=== PATIENT | female | born 1955 | race Caucasian/White ===

== ENCOUNTER → 2018-11-22 | Outpatient (CLI) | payer MEDICARE ==
--- NOTE | 2018-11-22 16:41 | Diagnostic Imaging Report ---
INDICATION: Chronic renal disease, mineral and bone disorder. TECHNIQUE: Two-view chest at 04:13 p.m. CORRELATION STUDY: None. FINDINGS: Given patient positioning and orientation, heart size, mediastinum, and vasculature are overall within normal limits. Multiple surgical clips in the epigastric region. Lung norris are clear of infiltrate. Mildly prominent interstitial markings. No significant effusion. Mild diffuse bony demineralization is present. IMPRESSION: 1. Negative for acute abnormality of the chest. Dictated by: Dictated on workstation # [id number]
== END ==
LOC: RAD FS 16:00
PROVIDERS: ATTEND Internal Medicine Nephrology
DX: E83.9 Disorder of mineral metabolism, unspecified (principal); N18.9 Chronic kidney disease, unspecified
CPT/HCPCS: 71046

== ENCOUNTER 2019-03-22 16:59 | Emergency (ER) | payer MEDICARE ==
[~2019-03-22] VITALS: Ht 165.1 cm; Wt 55.3 kg
[2019-03-22 17:51] LABS: BASOPHILS % (AUTO) 1 % (0-10); EOSINOPHILS # (AUTO) 0.1 10^3/uL (0.0-0.3); EOSINOPHILS % (AUTO) 2 % (0-10); HEMATOCRIT 34 % (35-52); LYMPHOCYTES # (AUTO) 0.6 X 10^3 (1.0-4.0); LYMPHOCYTES % (AUTO) 15 % (12-44); MEAN CORPUSCULAR HEMOGLOBIN 33 PG (25-34); MEAN CORPUSCULAR HGB CONC 32 G/DL (32-36); MEAN CORPUSCULAR VOLUME 103 FL (80-99); MEAN PLATELET VOLUME 10.2 FL (7.4-10.4); MONOCYTES # (AUTO) 0.4 X 10^3 (0.0-1.0); MONOCYTES % (AUTO) 10 % (0-12); NEUTROPHILS # (AUTO) 2.8 X 10^3 (1.8-7.8); NEUTROPHILS % (AUTO) 71 % (42-75); PLATELET COUNT 122 10^3/uL (130-400)
[2019-03-22 18:04] LABS: CREATININE SERUM 0.96 MG/DL (0.60-1.30); POTASSIUM 4.3 MMOL/L (3.6-5.0)
[2019-03-22 18:05] LABS: ALBUMIN 3.5 GM/DL (3.2-4.5); BILIRUBIN,TOTAL 0.4 MG/DL (0.1-1.0); CALCIUM 7.9 MG/DL (8.5-10.1); TOTAL PROTEIN 6.1 GM/DL (6.4-8.2)
--- NOTE | 2019-03-22 18:22 | ED General ---
General Chief Complaint: General Problems/Pain Stated Complaint: NAUSEA,DIZZY,DROWSY Nursing Triage Note: Patient and zamend-sr-xco report that patient has stage IV renal failure, LORI states that patient has been more fatigued than usual for several weeks, PCP stated patient needed physical therapy. Patient reports a poor appetite and increased fatigue for the last several days, states her potassium may be high. Nursing Sepsis Screen: No Definite Risk Source of Information: Patient Exam Limitations: No Limitations History of Present Illness Date Seen by Provider: Mar 22, 2019 Time Seen by Provider: 18:21 Initial Comments This 64-year-old white female presents when increasing fatigue for the last several weeks. She relates a history of intermittent low-grade fever and nasal congestion, non productive cough, nausea, and diarrhea. There is been no severe abdominal or chest pain, associated frequency or flank pain, paresthesias or weakness in the extremity. Allergies and Home Medications Allergies Coded Allergies: Penicillins (Verified Allergy, Unknown, 03/22/19) sulfamethoxazole (Verified Allergy, Unknown, 03/22/19) trimethoprim (Verified Allergy, Unknown, 03/22/19) zolpidem (Verified Allergy, Unknown, 03/22/19) Patient Home Medication List Home Medication List Reviewed: Yes Review of Systems Review of Systems Constitutional: see HPI, fever, malaise, weakness EENTM: see HPI, nose congestion Respiratory: see HPI, cough Gastrointestinal: No abdominal pain; diarrhea Genitourinary: no symptoms reported; No dysuria, No frequency Musculoskeletal: no symptoms reported Skin: no symptoms reported Psychiatric/Neurological: No Symptoms Reported Hematologic/Lymphatic: No Symptoms Reported Past Hpzhcmy-Jxndzl-Netzvu Hx Past Med/Social Hx: Reviewed Nursing Past Med/Soc Hx Patient Social History Alcohol Use: Denies Use Recreational Drug Use: No Smoking Status: Never a Smoker 2nd Hand Smoke Exposure: No Recent Foreign Travel: No Contact w/Someone Who Travel: No Recent Infectious Disease Expo: No Recent Hopitalizations: No Physical Abuse: No Sexual Abuse: No Mistreated: No Fear: No Seasonal Allergies Seasonal Allergies: No Past Medical History Surgeries: Yes (gastic surgery, neck surgery) Respiratory: No Cardiac: No Neurological: Yes (fibromyalgia) Genitourinary: Yes (Stage IV renal failure) Renal Failure Gastrointestinal: Yes Ulcer Musculoskeletal: No Endocrine: No HEENT: No Cancer: No Psychosocial: No Integumentary: No Physical Exam Vital Signs Vital Signs - First Documented 03/22/19 17:00 Temp 97.0 Pulse 84 Resp 16 B/P (MAP) 122/62 (82) Pulse Ox 94 O2 Delivery Room Air Capillary Refill : Less Than 3 Seconds Height, Weight, BMI Height: 5'5.00" Weight: 122lbs. oz. 55.062907gt; BMI Method:Stated General Appearance: No Apparent Distress, Cachetic Eyes: Bilateral Eye Normal Inspection HEENT: Normal ENT Inspection Neck: Normal Inspection Respiratory: Lungs Clear Cardiovascular: Regular Rate, Rhythm Gastrointestinal: Normal Bowel Sounds Extremity: Normal Capillary Refill, Normal Inspection Neurologic/Psychiatric: No Motor/Sensory Deficits, Normal Mood/Affect Skin: Normal Color, Warm/Dry Progress/Results/Core Measures Suspected Sepsis Recent Fever Within 48 Hours: No Infection Criteria Present: None New/Unexplained Altered Menta: No Sepsis Screen: No Definite Risk SIRS Temperature:97.0 Pulse: 84 Respiratory Rate: 16 Laboratory Tests 03/22/19 17:30: White Blood Count 4.0L Blood Pressure 122 /62 Mean: 82 Laboratory Tests 03/22/19 17:30: Creatinine 0.96, Platelet Count 122L, Total Bilirubin 0.4 Results/Orders Lab Results Laboratory Tests Test 03/22/19 17:30 Range/Units White Blood Count 4.0 L 4.3-11.0 10^3/uL Red Blood Count 3.34 L 4.35-5.85 10^6/uL Hemoglobin 11.0 L 11.5-16.0 G/DL Hematocrit 34 L 35-52 % Mean Corpuscular Volume 103 H 80-99 FL Mean Corpuscular Hemoglobin 33 25-34 PG Mean Corpuscular Hemoglobin Concent 32 32-36 G/DL Red Cell Distribution Width 13.0 10.0-14.5 % Platelet Count 122 L 130-400 10^3/uL Mean Platelet Volume 10.2 7.4-10.4 FL Neutrophils (%) (Auto) 71 42-75 % Lymphocytes (%) (Auto) 15 12-44 % Monocytes (%) (Auto) 10 0-12 % Eosinophils (%) (Auto) 2 0-10 % Basophils (%) (Auto) 1 0-10 % Neutrophils # (Auto) 2.8 1.8-7.8 X 10^3 Lymphocytes # (Auto) 0.6 L 1.0-4.0 X 10^3 Monocytes # (Auto) 0.4 0.0-1.0 X 10^3 Eosinophils # (Auto) 0.1 0.0-0.3 10^3/uL Basophils # (Auto) 0.0 0.0-0.1 10^3/uL Sodium Level 139 135-145 MMOL/L Potassium Level 4.3 3.6-5.0 MMOL/L Chloride Level 100 98-107 MMOL/L Carbon Dioxide Level 24 21-32 MMOL/L Anion Gap 15 H 5-14 MMOL/L Blood Urea Nitrogen 13 7-18 MG/DL Creatinine 0.96 0.60-1.30 MG/DL Estimat Glomerular Filtration Rate 59 BUN/Creatinine Ratio 14 Glucose Level 99 70-105 MG/DL Calcium Level 7.9 L 8.5-10.1 MG/DL Corrected Calcium 8.3 L 8.5-10.1 MG/DL Total Bilirubin 0.4 0.1-1.0 MG/DL Aspartate Amino Transf (AST/SGOT) 57 H 5-34 U/L Alanine Aminotransferase (ALT/SGPT) 28 0-55 U/L Alkaline Phosphatase 107 40-136 U/L Total Protein 6.1 L 6.4-8.2 GM/DL Albumin 3.5 3.2-4.5 GM/DL My Orders Orders - PARISA SINGH MD Ns Iv 1000 Ml (Sodium Chloride 0.9%) (03/22/19 18:30) Ns Iv 1000 Ml (Sodium Chloride 0.9%) (03/22/19 18:27) Vital Signs/I&O 03/22/19 17:00 Temp 97.0 Pulse 84 Resp 16 B/P (MAP) 122/62 (82) Pulse Ox 94 O2 Delivery Room Air Capillary Refill : Less Than 3 Seconds Blood Pressure Mean: 82 Progress Note : Time: 19:36 Progress Note Patient laboratory evaluation was essentially unremarkable. The patient was symptomatically improved with a liter of fluids. I discussed the findings with the patient and family. I encouraged him to follow up with their caregiver on Monday. I invited them to return to the emergency department over the weekend if any further problems or questions. Departure Impression Primary Impression: Viral gastroenteritis Additional Impression: Viral syndrome Disposition: 01 HOME, SELF-CARE Condition: Improved Departure-Patient Inst. Decision time for Depature: 19:37 Referrals: SHEILA SUTTON (PCP) Primary Care Physician Patient Instructions: Viral Gastroenteritis, Adult (DC) Add. Discharge Instructions: Clear liquids for the next 24 hours. Zofran for nausea. Close follow here doctor on Monday. Return if any problems or questions. All discharge instructions reviewed with patient and/or family. Voiced understanding. Scripts Ondansetron (Ondansetron Odt) 4 Mg Tab.rapdis 4 MG PO Q4H PRN for NAUSEA/VOMITING, #10 TAB Prov: PARISA SINGH MD 03/22/19 PARISA SINGH MD Mar 22, 2019 18:22
[2019-03-22] MEDS ORDERED: NS IV 1000 ML 1,000 ML ONE (18:27)
[2019-03-22] MEDS ORDERED: NS IV 1000 ML 1,000 ML IV SCH (18:30)
[2019-03-22] MEDS ORDERED: ONDA4TAB11 PO (19:39)
[2019-03-22 19:53] VITALS: BP 119/63
--- OUTSIDE RECORDS SUMMARY | 2019-03-22 21:47 | XMS REPORT | Continuity of Care Document ---
Author Organization Unknown Address Unknown Allergies There is no data. Medications There is no data. Problems There is no data. Procedures There is no data. Results Test Result Range [facility] - 01/01/19 10:00 GLUCOSE 84 mg/dL 65-139 UREA NITROGEN (BUN) 18 mg/dL 7-25 CREATININE 1.06 mg/dL 0.50-0.99 eGFR NON-AFR. CONGOLESE 56 mL/min/1.73m2 > OR=60 eGFR 65 mL/min/1.73m2 > OR=60 BUN/CREATININE RATIO 17 (calc) 6-22 SODIUM 140 mmol/L 135-146 POTASSIUM 5.5 mmol/L 3.5-5.3 CHLORIDE 105 mmol/L 98-110 CARBON DIOXIDE 29 mmol/L 20-32 CALCIUM 9.0 mg/dL 8.6-10.4 PROTEIN, TOTAL 6.3 g/dL 6.1-8.1 ALBUMIN 3.9 g/dL 3.6-5.1 GLOBULIN 2.4 g/dL (calc) 1.9-3.7 ALBUMIN/GLOBULIN RATIO 1.6 (calc) 1.0-2.5 BILIRUBIN, TOTAL 0.3 mg/dL 0.2-1.2 ALKALINE PHOSPHATASE 81 U/L 33-130 AST 15 U/L 10-35 ALT 8 U/L 6-29 [facility] - 01/31/19 16:33 GLUCOSE 81 mg/dL 65-99 UREA NITROGEN (BUN) 19 mg/dL 7-25 CREATININE 1.10 mg/dL 0.50-0.99 eGFR NON-AFR. CONGOLESE 53 mL/min/1.73m2 > OR=60 eGFR 61 mL/min/1.73m2 > OR=60 BUN/CREATININE RATIO 17 (calc) 6-22 SODIUM 138 mmol/L 135-146 POTASSIUM 4.6 mmol/L 3.5-5.3 CHLORIDE 102 mmol/L 98-110 CARBON DIOXIDE 28 mmol/L 20-32 CALCIUM 9.1 mg/dL 8.6-10.4 Encounters ACCT No. Visit Date/Time Discharge Status Pt. Type Provider Facility Loc./Unit Complaint [id number] 02/07/2019 09:00:00 02/07/2019 23:59:59 [facility] Robby LAZO PHD, BONNY Pedraza [facility] [id number] 01/31/2019 15:30:00 Document Registration [id number] 01/01/2019 09:00:00 Document Registration
== END 2019-03-22 19:58 | disposition home or self-care (01) ==
LOC: EDUNIT# 16:59 → ER FS 17:01
DX: A08.4 Viral intestinal infection, unspecified (principal); B34.9 Viral infection, unspecified; M79.7 Fibromyalgia; N18.4 Chronic kidney disease, stage 4 (severe); Z88.0 Allergy status to penicillin; Z88.2 Allergy status to sulfonamides; Z88.1 Allergy status to other antibiotic agents; Z88.8 Allergy status to other drugs, medicaments and biological substances
CPT/HCPCS: 36415; 80053; 85025; 96360

== ENCOUNTER → 2019-06-21 | Outpatient (CLI) | payer MEDICARE ==
[~2019-06-21] MED LIST: ONDA4TAB11 PO
[2019-06-21 09:00] LABS: CARBON DIOXIDE 30 MMOL/L (21-32); CHLORIDE 101 MMOL/L (98-107); POTASSIUM 3.3 MMOL/L (3.6-5.0); SODIUM 141 MMOL/L (135-145)
[2019-06-21 09:01] LABS: ALANINE AMINOTRANSFERASE 11 U/L (0-55); ALKALINE PHOSPHATASE 79 U/L (40-136); BILIRUBIN,TOTAL 0.4 MG/DL (0.1-1.0); BUN/CREATININE RATIO 19; CALCIUM 8.8 MG/DL (8.5-10.1); CREATININE SERUM 0.84 MG/DL (0.60-1.30); GFR ESTIMATED > 60; GLUCOSE 87 MG/DL (70-105); MAGNESIUM 1.4 MG/DL (1.6-2.4); TOTAL PROTEIN 6.7 GM/DL (6.4-8.2)
== END ==
LOC: LAB FS 08:15
PROVIDERS: ATTEND Nurse Practitioner
DX: E87.5 Hyperkalemia (principal); I10 Essential (primary) hypertension
CPT/HCPCS: 36415; 80053; 83735

== ENCOUNTER → 2019-11-01 | Outpatient (CLI) | payer MEDICARE ==
[2019-11-01 14:24] LABS: PHOSPHORUS 3.6 MG/DL (2.3-4.7)
[2019-11-01 14:40] LABS: BUN/CREATININE RATIO 16; CARBON DIOXIDE 23 MMOL/L (21-32); CHLORIDE 106 MMOL/L (98-107); CREATININE SERUM 0.87 MG/DL (0.60-1.30); GFR ESTIMATED > 60; GLUCOSE 91 MG/DL (70-105); POTASSIUM 4.9 MMOL/L (3.6-5.0); SODIUM 140 MMOL/L (135-145)
== END ==
LOC: LAB FS 12:17
PROVIDERS: ATTEND Internal Medicine Nephrology
DX: E87.6 Hypokalemia (principal); E83.9 Disorder of mineral metabolism, unspecified; N18.9 Chronic kidney disease, unspecified
CPT/HCPCS: 36415; 80069

== ENCOUNTER → 2020-06-05 | Outpatient (CLI) | payer MEDICARE | LOC: LAB FS 09:00 | PROVIDERS: ATTEND Psychiatry & Neurology Neurology | DX: Z01.812 Encounter for preprocedural laboratory examination (principal); Z20.828 Contact with and (suspected) exposure to other viral communicable diseases ==

== ENCOUNTER → 2020-06-05 | Outpatient (CLI) | payer MEDICARE | LOC: LABNPT 05:39 | PROVIDERS: ATTEND Psychiatry & Neurology Neurology | DX: Z01.812 Encounter for preprocedural laboratory examination (principal); Z20.828 Contact with and (suspected) exposure to other viral communicable diseases | CPT/HCPCS: 87635 ==

== ENCOUNTER 2020-06-15 20:53 | Outpatient (CLI) | payer MEDICARE | END 2020-06-16 06:40 | disposition home or self-care (01) | LOC: SLEEP 20:53 | PROVIDERS: ATTEND Psychiatry & Neurology Neurology | DX: G47.33 Obstructive sleep apnea (adult) (pediatric) (principal); G47.419 Narcolepsy without cataplexy; G47.00 Insomnia, unspecified; G47.10 Hypersomnia, unspecified; H02.403 Unspecified ptosis of bilateral eyelids; Z20.828 Contact with and (suspected) exposure to other viral communicable diseases | CPT/HCPCS: 95810 ==

== ENCOUNTER 2020-09-04 19:25 | Emergency (ER) | payer MEDICARE ==
[~2020-09-04] VITALS: Ht 167.2 cm; Wt 58.0 kg
--- NOTE | 2020-09-04 19:43 | ED Lower Extremity ---
General Chief Complaint: Trauma-Non Activation Stated Complaint: FALL History of Present Illness Date Seen by Provider: Sep 04, 2020 Time Seen by Provider: 19:43 Initial Comments 65-year-old female presents with left hip pain. Patient reports she was walking her dog got tangled in a dog's leash and she fell on her left hip. She also has a small contusion on her left forearm. Patient reports that she's had a previous hip surgery. Reports it happened about 8 hours ago. That she is able to move it. It hurts to bear weight on it. She comes in tonight because it continues to hurt. She suffered no other injuries during the fall. Allergies and Home Medications Allergies Coded Allergies: Penicillins (Verified Allergy, Unknown, 03/22/19) sulfamethoxazole (Verified Allergy, Unknown, 03/22/19) trimethoprim (Verified Allergy, Unknown, 03/22/19) zolpidem (Verified Allergy, Unknown, 03/22/19) Home Medications Ondansetron 4 Mg Tab.rapdis, 4 MG PO Q4H PRN for NAUSEA/VOMITING Prescribed by: PARISA SINGH MD on 03/22/191938 Patient Home Medication List Home Medication List Reviewed: Yes Review of Systems Constitutional: No chills, No fever EENTM: see HPI Respiratory: No cough, No short of breath Cardiovascular: No chest pain, No palpitations Gastrointestinal: No abdominal pain, No nausea, No vomiting Genitourinary: no symptoms reported Musculoskeletal: see HPI Skin: see HPI Psychiatric/Neurological: No Symptoms Reported Past Cwrfgrz-Lrtnhv-Cvamwx Hx Past Med/Social Hx: Reviewed Nursing Past Med/Soc Hx Patient Social History 2nd Hand Smoke Exposure: No Recent Foreign Travel: No Contact w/Someone Who Travel: No Recent Hopitalizations: No Seasonal Allergies Seasonal Allergies: No Past Medical History Surgeries: Yes (gastic surgery, neck surgery) Respiratory: No Cardiac: No Neurological: Yes (fibromyalgia) Genitourinary: Yes (Stage IV renal failure) Renal Failure Gastrointestinal: Yes Ulcer Musculoskeletal: No Endocrine: No HEENT: No Cancer: No Psychosocial: No Integumentary: No Physical Exam Vital Signs Vital Signs - First Documented 09/04/20 19:26 Temp 36.9 Pulse 94 Resp 14 B/P (MAP) 157/73 (101) Pulse Ox 97 O2 Delivery Room Air Capillary Refill : Height, Weight, BMI Height: 5'5.00" Weight: 122lbs. oz. 55.364910ks; BMI Method:Stated General Appearance: mild distress Neck: full range of motion, supple Cardiovascular: normal peripheral pulses, regular rate, rhythm Respiratory: lungs clear, normal breath sounds Gastrointestinal: non tender, soft Hips: right hip non-tender, right hip normal inspection, right hip normal range of motion; left hip limited range of motion, left hip soft tissue tenderness Legs: bilateral leg non-tender, bilateral leg normal inspection Knees: bilateral knee non-tender, bilateral knee normal inspection Ankles: bilateral ankle non-tender, bilateral ankle normal inspection Neurologic/Tendon: normal sensation Neurologic/Psychiatric: alert, normal mood/affect, oriented x 3 Skin: ecchymosis (left forearm) Progress/Results/Core Measures Results/Orders My Orders Orders - WARNER MARCOS DO Pelvis With Left Hip 2-3 View (09/04/20 19:45) Vital Signs/I&O 09/04/20 09/04/20 19:26 19:50 Temp 36.9 36.9 Pulse 94 94 Resp 14 14 B/P (MAP) 157/73 (101) 157/73 (101) Pulse Ox 97 97 O2 Delivery Room Air Room Air Progress Progress Note : Time: 20:15 Progress Note Patient with negative x-ray of her left hip. She has a hematoma of the left forearm. X-ray was offered the forearm and she declined. Patient was instructed use some Tylenol as needed for pain, topical lidocaine, ice. She should follow- up with her primary care provider as needed Diagnostic Imaging Diagonstic Imaging: Xray Plain Films/CT/US/NM/MRI: hip Comments No acute fracture noted [facility] [place] NAME: RYAN SOMMERS [facility] REC#: [id number] PT STATUS: REG ER : 1955 PHYSICIAN: WARNER MARCOS DO ADMIT DATE: 09/04/20/ER FS Draft Date of Exam:09/04/20 PELVIS WITH LEFT HIP 2-3 VIEW EXAMINATION: Left hip unilateral 2 or 3 views (w/pelvis when done). HISTORY: Fall. COMPARISON: None available. FINDINGS: Heterotopic ossification is seen in the left thigh possibly representing myositis ossifications. No fracture is seen in either hip. There is a deformity of the left hip likely representing an old healed fracture. There is osteitis pubis versus an old pubic fracture. Joint spaces are normal. IMPRESSION: No acute fracture is seen. Dictated on workstation # [id number] Dict: 09/04/202003 Trans: 09/04/202008 [id number] Interpreted by: AMIRAH LAZO MD Electronically signed by: Reviewed: Reviewed by Me, Reviewed/Discussed Departure Impression Primary Impression: Contusion, hip and thigh Qualified Codes: S70.02XA - Contusion of left hip, initial encounter; S70.12XA - Contusion of left thigh, initial encounter Additional Impression: Traumatic hematoma of left forearm Qualified Codes: S50.12XA - Contusion of left forearm, initial encounter Disposition: 01 HOME, SELF-CARE Condition: Stable Departure-Patient Inst. Referrals: CASPER HERNANDEZ MD (PCP/Family) Primary Care Physician Patient Instructions: Hip Pointer (DC), Contusion (DC) Add. Discharge Instructions: 4% topical lidocaine with menthol to affected area as directed on package Ice to affected area Follow-up with your primary care provider if symptoms are not improving or worsen over the next week. All discharge instructions reviewed with patient and/or family. Voiced understanding. WARNER MARCOS DO Sep 04, 2020 19:43
--- NOTE | 2020-09-04 20:09 | Diagnostic Imaging Report ---
EXAMINATION: Left hip unilateral 2 or 3 views (w/pelvis when done). HISTORY: Fall. COMPARISON: None available. FINDINGS: Heterotopic ossification is seen in the left thigh possibly representing myositis ossifications. No fracture is seen in either hip. There is a deformity of the left hip likely representing an old healed fracture. There is osteitis pubis versus an old pubic fracture. Joint spaces are normal. IMPRESSION: No acute fracture is seen. Dictated by: Dictated on workstation # [id number]
[2020-09-04 20:18] VITALS: BP 140/62
== END 2020-09-04 20:38 | disposition home or self-care (01) ==
LOC: EDUNIT# 19:25 → ER FS 19:31
DX: S70.02XA Contusion of left hip, initial encounter (principal); S70.12XA Contusion of left thigh, initial encounter; S50.12XA Contusion of left forearm, initial encounter; Z88.0 Allergy status to penicillin; Z88.2 Allergy status to sulfonamides; Z88.1 Allergy status to other antibiotic agents; Z88.8 Allergy status to other drugs, medicaments and biological substances; W54.1XXA Struck by dog, initial encounter
CPT/HCPCS: 73502

== ENCOUNTER 2020-09-11 21:17 | Emergency (ER) | payer MEDICARE ==
--- NOTE | 2020-09-11 21:30 | ED Lower Extremity ---
General Stated Complaint: FELL TWICE,LT LEG AND HIP PAIN History of Present Illness Date Seen by Provider: Sep 11, 2020 Time Seen by Provider: 21:27 Initial Comments 65-year-old female presents with left hip pain. Patient was seen here on 1225 following a fall when she got tangled in her dog leash with a negative x-ray. Since then she has had another fall along with tonight she twisted funny and now has worsening pain in her left hip. She also reports she is "been having a hard time keeping her eyes open". She reports she's been seen following with her family doctor on for both the hip pain and that difficulty with what she says is keeping her eyes open. Patient is here today because of the worsening pain in her left hip. Patient is mildly lethargic but then admits to taking morphine prior to coming to the ER Allergies and Home Medications Allergies Coded Allergies: Penicillins (Verified Allergy, Unknown, 03/22/19) sulfamethoxazole (Verified Allergy, Unknown, 03/22/19) trimethoprim (Verified Allergy, Unknown, 03/22/19) zolpidem (Verified Allergy, Unknown, 03/22/19) Home Medications Ondansetron 4 Mg Tab.rapdis, 4 MG PO Q4H PRN for NAUSEA/VOMITING Prescribed by: PARISA SINGH MD on 03/22/191938 Patient Home Medication List Home Medication List Reviewed: Yes Review of Systems Constitutional: No chills, No fever EENTM: see HPI Respiratory: No cough, No short of breath Cardiovascular: No chest pain, No palpitations Gastrointestinal: no symptoms reported Genitourinary: no symptoms reported Musculoskeletal: see HPI Skin: no symptoms reported Psychiatric/Neurological: No Symptoms Reported Past Fmnoine-Huazwt-Lbztrs Hx Past Med/Social Hx: Reviewed Nursing Past Med/Soc Hx Patient Social History 2nd Hand Smoke Exposure: No Recent Foreign Travel: No Contact w/Someone Who Travel: No Recent Hopitalizations: No Seasonal Allergies Seasonal Allergies: No Past Medical History Surgeries: Yes (gastic surgery, neck surgery) Respiratory: No Cardiac: No Hypertension Neurological: Yes (fibromyalgia) Genitourinary: Yes (Stage IV renal failure) Renal Failure Gastrointestinal: Yes Ulcer Musculoskeletal: No Endocrine: No HEENT: No Cancer: No Psychosocial: Yes Depression Integumentary: No Blood Disorders: No Physical Exam Vital Signs Vital Signs - First Documented 09/11/20 21:21 Pulse 110 Resp 16 B/P (MAP) 113/63 (80) Pulse Ox 100 O2 Delivery Room Air Capillary Refill : Height, Weight, BMI Height: 5'5.00" Weight: 122lbs. oz. 55.174400zy; 20.00 BMI Method:Stated General Appearance: mild distress HEENT: other (patient has her eyes closed and then when she wants to she'll gently reaches up and hold them up with her fingers, she reports that this is not new has been evaluated outpatient for this) Neck: full range of motion, supple Cardiovascular: normal peripheral pulses, regular rate, rhythm Respiratory: lungs clear, normal breath sounds Hips: left hip soft tissue tenderness Legs: bilateral leg no evidence of injury Knees: bilateral knee normal inspection, bilateral knee normal range of motion Ankles: bilateral ankle non-tender Neurologic/Psychiatric: alert, other (mild fatigue/lethargic consistent with morphine use) Progress/Results/Core Measures Results/Orders Lab Results Laboratory Tests Test 09/11/20 21:31 Range/Units White Blood Count 5.8 4.3-11.0 10^3/uL Red Blood Count 3.36 L 4.35-5.85 10^6/uL Hemoglobin 11.6 11.5-16.0 G/DL Hematocrit 36 35-52 % Mean Corpuscular Volume 107 H 80-99 FL Mean Corpuscular Hemoglobin 35 H 25-34 PG Mean Corpuscular Hemoglobin Concent 32 32-36 G/DL Red Cell Distribution Width 12.8 10.0-14.5 % Platelet Count 233 130-400 10^3/uL Mean Platelet Volume 10.1 7.4-10.4 FL Immature Granulocyte % (Auto) 1 % Neutrophils (%) (Auto) 78 H 42-75 % Lymphocytes (%) (Auto) 12 12-44 % Monocytes (%) (Auto) 9 0-12 % Eosinophils (%) (Auto) 1 0-10 % Basophils (%) (Auto) 0 0-10 % Neutrophils # (Auto) 4.5 1.8-7.8 X 10^3 Lymphocytes # (Auto) 0.7 L 1.0-4.0 X 10^3 Monocytes # (Auto) 0.5 0.0-1.0 X 10^3 Eosinophils # (Auto) 0.0 0.0-0.3 10^3/uL Basophils # (Auto) 0.0 0.0-0.1 10^3/uL Immature Granulocyte # (Auto) 0.0 0.0-0.1 10^3/uL Sodium Level 134 L 135-145 MMOL/L Potassium Level 4.2 3.6-5.0 MMOL/L Chloride Level 99 98-107 MMOL/L Carbon Dioxide Level 21 21-32 MMOL/L Anion Gap 14 5-14 MMOL/L Blood Urea Nitrogen 15 7-18 MG/DL Creatinine 0.88 0.60-1.30 MG/DL Estimat Glomerular Filtration Rate > 60 BUN/Creatinine Ratio 17 Glucose Level 104 70-105 MG/DL Calcium Level 9.4 8.5-10.1 MG/DL Corrected Calcium 9.6 8.5-10.1 MG/DL Total Bilirubin 0.4 0.1-1.0 MG/DL Aspartate Amino Transf (AST/SGOT) 19 5-34 U/L Alanine Aminotransferase (ALT/SGPT) 12 0-55 U/L Alkaline Phosphatase 104 40-136 U/L C-Reactive Protein 4.58 H <0.50 MG/DL Total Protein 6.9 6.4-8.2 GM/DL Albumin 3.7 3.2-4.5 GM/DL My Orders Orders - MARCOS,WARNER L DO Cbc With Automated Diff (09/11/20 21:30) Comprehensive Metabolic Panel (09/11/20 21:30) Drug Screen Stat (Urine) (09/11/20 21:30) Ua Culture If Indicated (09/11/20 21:30) Crp Fs (09/11/20 21:30) Pelvis With Left Hip 2-3 View (09/11/20 21:30) Ct Extremity Lower Left Wo (09/11/20 22:23) Vital Signs/I&O 09/11/20 21:21 Pulse 110 Resp 16 B/P (MAP) 113/63 (80) Pulse Ox 100 O2 Delivery Room Air Progress Progress Note : Progress Note Patient with intertrochanteric left hip fracture on CT. Patient to be transferred ER to ER to [place]. [facility] does not have any orthopedic coverage today. Patient is stable at transfer. Diagnostic Imaging Diagonstic Imaging: CT Plain Films/CT/US/NM/MRI: hip Comments intertrochanteric left hip fracture Reviewed: Reviewed Farheen King Study Departure Impression Primary Impression: Intertrochanteric fracture of left hip Qualified Codes: S72.145A - Nondisplaced intertrochanteric fracture of left femur, initial encounter for closed fracture Disposition: XFER SHT-TRM HOSP Condition: Stable Transfer Transfer Reason: Exceeds level of care Time Spoke to Accepting Phy: 23:40 Transfer Progress Notes Patient accepted for transfer urinary ER by Dr. Chandra Transfer Facility: [facility] Method of Transfer: EMS Departure-Patient Inst. Referrals: CASPER HERNANDEZ MD (PCP/Family) Primary Care Physician WARNER MARCOS DO Sep 11, 2020 21:30
[2020-09-11 21:43] LABS: HEMATOCRIT 36 % (35-52); HEMOGLOBIN 11.6 G/DL (11.5-16.0); MEAN CORPUSCULAR HEMOGLOBIN 35 PG (25-34); WHITE BLOOD COUNT 5.8 10^3/uL (4.3-11.0)
[2020-09-11 21:44] LABS: BASOPHILS % (AUTO) 0 % (0-10); EOSINOPHILS % (AUTO) 1 % (0-10); LYMPHOCYTES # (AUTO) 0.7 X 10^3 (1.0-4.0); LYMPHOCYTES % (AUTO) 12 % (12-44); MEAN CORPUSCULAR HGB CONC 32 G/DL (32-36); MEAN CORPUSCULAR VOLUME 107 FL (80-99); MEAN PLATELET VOLUME 10.1 FL (7.4-10.4); MONOCYTES # (AUTO) 0.5 X 10^3 (0.0-1.0); MONOCYTES % (AUTO) 9 % (0-12); NEUTROPHILS # (AUTO) 4.5 X 10^3 (1.8-7.8); NEUTROPHILS % (AUTO) 78 % (42-75); PLATELET COUNT 233 10^3/uL (130-400)
[2020-09-11 22:12] LABS: CHLORIDE 99 MMOL/L (98-107); POTASSIUM 4.2 MMOL/L (3.6-5.0); SODIUM 134 MMOL/L (135-145)
[2020-09-11 22:13] LABS: ALANINE AMINOTRANSFERASE 12 U/L (0-55); ALBUMIN 3.7 GM/DL (3.2-4.5); ALKALINE PHOSPHATASE 104 U/L (40-136); BILIRUBIN,TOTAL 0.4 MG/DL (0.1-1.0); BUN/CREATININE RATIO 17; CALCIUM 9.4 MG/DL (8.5-10.1); CARBON DIOXIDE 21 MMOL/L (21-32); CREATININE SERUM 0.88 MG/DL (0.60-1.30); GFR ESTIMATED > 60; GLUCOSE 104 MG/DL (70-105); TOTAL PROTEIN 6.9 GM/DL (6.4-8.2)
[2020-09-11 23:55] LABS: BACTERIA,URINE NEGATIVE /HPF; BILIRUBIN,URINE NEGATIVE (NEGATIVE); CLARITY,URINE CLEAR; COLOR,URINE YELLOW; GLUCOSE, URINE (UA) NEGATIVE (NEGATIVE); KETONES,URINE NEGATIVE (NEGATIVE); LEUKOCYTE ESTERASE ,URINE NEGATIVE (NEGATIVE); NITRITE,URINE NEGATIVE (NEGATIVE); PROTEIN,URINE NEGATIVE (NEGATIVE); RBC,URINE RARE /HPF
[2020-09-12 00:03] LABS: AMPHETAMINE SCREEN, URINE NEGATIVE (NEGATIVE); BENZODIAZEPINES SCREEN URINE NEGATIVE (NEGATIVE); CANNABINOID SCREEN, URINE NEGATIVE (NEGATIVE); COCAINE SCREEN URINE NEGATIVE (NEGATIVE); METHAMPHETAMINE SCREEN URINE S NEGATIVE (NEGATIVE); OPIATE SCREEN URINE POSITIVE (NEGATIVE)
[2020-09-12 00:04] LABS: BARBITURATE SCREEN URINE NEGATIVE (NEGATIVE); METHADONE STAT NEGATIVE (NEGATIVE); OXYCODONE STAT NEGATIVE (NEGATIVE); PROPOXYPHENE STAT NEGATIVE (NEGATIVE); TRICYCLIC ANTIDEPRESSANTS SCRE NEGATIVE (NEGATIVE)
[2020-09-12 01:07] VITALS: BP 126/65
[2020-09-12] MEDS ORDERED: HYDROcodone/APAP 5 MG/325 MG (LORTAB) TAB PO ONE (01:30)
--- NOTE | 2020-09-12 06:08 | Diagnostic Imaging Report ---
INDICATION: History of multiple falls. Left hip pain. TECHNIQUE: AP pelvis along with 2 views left hip, 9:48 PM CORRELATION STUDY: 09/04/2020 FINDINGS: The pelvis demonstrates what appears to be prior fracture deformity at the level of the pubic symphysis. Osteitis pubis is present. SI joints are grossly maintained but largely obscured by overlying bowel gas and stool. Right hip joint demonstrates no acute abnormality. There is an impacted intertrochanteric proximal left femur fracture. Heterotopic ossification seen in the left thigh. Can be seen with perhaps prior myositis ossificans. IMPRESSION: Positive for an impacted left intertrochanteric femur fracture. Remainder of the pelvis otherwise demonstrates chronic changes with likely prior fracture deformities of the pubic rami. Dictated by: Dictated on workstation # [id number]
--- NOTE | 2020-09-12 06:14 | Diagnostic Imaging Report ---
PROCEDURE: CT left lower extremity without contrast. TECHNIQUE: Multiple contiguous axial images were obtained through the left lower extremity without the use of intravenous contrast. Sagittal and coronal reformations were then performed. Auto Exposure Controls were utilized during the CT exam to meet ALARA standards for radiation dose reduction. INDICATION: Multiple falls and left hip pain. There is an acute intertrochanteric type left hip fracture. The femoral acetabular alignment is maintained. The superior and inferior pubic rami are intact. Acetabulum is intact. IMPRESSION: Intertrochanteric left hip fracture. Dictated by: Dictated on workstation # [id number]
== END 2020-09-12 02:10 | disposition short-term general hospital (02) ==
LOC: EDUNIT# 21:17 → ER FS 21:19
DX: S72.142A Displaced intertrochanteric fracture of left femur, initial encounter for closed fracture (principal); Z88.1 Allergy status to other antibiotic agents; Z88.0 Allergy status to penicillin; Z88.2 Allergy status to sulfonamides; Z88.8 Allergy status to other drugs, medicaments and biological substances; X50.1XXA Overexertion from prolonged static or awkward postures, initial encounter
CPT/HCPCS: 36415; 51702; 73502; 73700; 80053; 80306; 81000; 85025; 86141

== ENCOUNTER 2020-11-22 01:43 | Emergency (ER) | payer MEDICARE, MEDICAID ==
[~2020-11-22] VITALS: Ht 152 cm; Wt 47.1 kg
[2020-11-22 01:51] VITALS: BP 137/65
--- NOTE | 2020-11-22 01:57 | ED GI ---
General Stated Complaint: DIARRHEA Source of Information: Patient Exam Limitations: No Limitations History of Present Illness Date Seen by Provider: Nov 22, 2020 Time Seen by Provider: 01:57 Initial Comments 65-year-old female presents with complaints of chronic diarrhea. Patient is to obtain a history as she frequently can changes focus and her story. Patient told the nurse that she has had diarrhea on and off for 30 years for last 2 to 3 weeks its been more of an issue. Patient told me she has been having diarrhea for at least 3 to 4 weeks with this new issue. Patient states that there is a little bit of "flecks of blood" in her diarrhea. Patient's primary care provider is supposedly aware of her diarrheal issue. Patient saw him approximately 7 days ago. She states that he treated her with an antibiotic for cellulitis of the left leg. She does not report any nausea, vomiting. Allergies and Home Medications Allergies Coded Allergies: Penicillins (Verified Allergy, Unknown, 03/22/19) sulfamethoxazole (Verified Allergy, Unknown, 03/22/19) trimethoprim (Verified Allergy, Unknown, 03/22/19) zolpidem (Verified Allergy, Unknown, 03/22/19) Home Medications Ondansetron 4 Mg Tab.rapdis, 4 MG PO Q4H PRN for NAUSEA/VOMITING Prescribed by: PARISA SINGH MD on 03/22/191938 Patient Home Medication List Home Medication List Reviewed: Yes Review of Systems Review of Systems Constitutional: see HPI EENTM: See HPI Respiratory: No Symptoms Reported, Orthopnea Gastrointestinal: See HPI; Denies Abdominal Pain; Diarrhea; Denies Nausea, Denies Vomiting Genitourinary: No Symptoms Reported Musculoskeletal: no symptoms reported Skin: no symptoms reported Psychiatric/Neurological: No Symptoms Reported Past Crjalxz-Swwgbu-Ysmfyn Hx Past Med/Social Hx: Reviewed Nursing Past Med/Soc Hx Patient Social History 2nd Hand Smoke Exposure: No Recent Hopitalizations: No Seasonal Allergies Seasonal Allergies: No Past Medical History Surgeries: Yes (gastic surgery, neck surgery) Respiratory: No Cardiac: No Hypertension Neurological: Yes (fibromyalgia) Genitourinary: Yes (Stage IV renal failure) Renal Failure Gastrointestinal: Yes Ulcer Musculoskeletal: No Endocrine: No HEENT: No Cancer: No Psychosocial: Yes Depression Integumentary: No Blood Disorders: No Physical Exam Vital Signs Vital Signs - First Documented 11/22/20 01:51 Temp 36.6 Pulse 101 Resp 18 B/P (MAP) 137/65 (89) Pulse Ox 100 O2 Delivery Room Air Capillary Refill : Height/Weight/BMI Height: 5'5.00" Weight: 122lbs. oz. 55.108969hm; 20.00 BMI Method:Stated General Appearance: no apparent distress, cachetic Respiratory: lungs clear, normal breath sounds Cardiovascular: normal peripheral pulses, regular rate, rhythm Gastrointestinal: non tender, soft Neurologic/Psychiatric: no motor/sensory deficits Skin: normal color, warm/dry Progress/Results/Core Measures Results/Orders Lab Results Laboratory Tests Test 11/22/20 03:08 Range/Units White Blood Count 4.6 4.3-11.0 10^3/uL Red Blood Count 3.50 L 4.35-5.85 10^6/uL Hemoglobin 9.7 L 11.5-16.0 G/DL Hematocrit 33 L 35-52 % Mean Corpuscular Volume 93 80-99 FL Mean Corpuscular Hemoglobin 28 25-34 PG Mean Corpuscular Hemoglobin Concent 30 L 32-36 G/DL Red Cell Distribution Width 16.5 H 10.0-14.5 % Platelet Count 208 130-400 10^3/uL Mean Platelet Volume 10.1 7.4-10.4 FL Immature Granulocyte % (Auto) 0 % Neutrophils (%) (Auto) 64 42-75 % Lymphocytes (%) (Auto) 25 12-44 % Monocytes (%) (Auto) 8 0-12 % Eosinophils (%) (Auto) 2 0-10 % Basophils (%) (Auto) 1 0-10 % Neutrophils # (Auto) 3.0 1.8-7.8 X 10^3 Lymphocytes # (Auto) 1.2 1.0-4.0 X 10^3 Monocytes # (Auto) 0.4 0.0-1.0 X 10^3 Eosinophils # (Auto) 0.1 0.0-0.3 10^3/uL Basophils # (Auto) 0.0 0.0-0.1 10^3/uL Immature Granulocyte # (Auto) 0.0 0.0-0.1 10^3/uL Sodium Level 138 135-145 MMOL/L Potassium Level 4.5 3.6-5.0 MMOL/L Chloride Level 107 98-107 MMOL/L Carbon Dioxide Level 23 21-32 MMOL/L Anion Gap 8 5-14 MMOL/L Blood Urea Nitrogen 13 7-18 MG/DL Creatinine 0.89 0.60-1.30 MG/DL Estimat Glomerular Filtration Rate > 60 BUN/Creatinine Ratio 15 Glucose Level 95 70-105 MG/DL Calcium Level 9.2 8.5-10.1 MG/DL Corrected Calcium 9.8 8.5-10.1 MG/DL Total Bilirubin 0.2 0.1-1.0 MG/DL Aspartate Amino Transf (AST/SGOT) 13 5-34 U/L Alanine Aminotransferase (ALT/SGPT) 7 0-55 U/L Alkaline Phosphatase 124 40-136 U/L Total Protein 6.2 L 6.4-8.2 GM/DL Albumin 3.2 3.2-4.5 GM/DL My Orders Orders - WARNER MARCOS DO Cbc With Automated Diff (11/22/20 03:04) Comprehensive Metabolic Panel (11/22/20 03:04) Vital Signs/I&O 11/22/20 01:51 Temp 36.6 Pulse 101 Resp 18 B/P (MAP) 137/65 (89) Pulse Ox 100 O2 Delivery Room Air Progress Progress Note : Progress Note Patient daughter/caregiver presented. Reports that she was already given Imodium by Dr. Benítez. The about a week ago she was switched antibiotics and that is when the diarrhea changed and became a bit worse. Discussed with them that patient has known chronic diarrhea issues, that her hemoglobin slightly lower but stable along with less rest of her labs and electrolytes. The she will need further outpatient management. I recommended they see GI specialist/general surgeon to help with management. Patient stable and discharged home Departure Impression Primary Impression: Chronic diarrhea of unknown origin Disposition: HOME, SELF-CARE Condition: Stable Departure-Patient Inst. Referrals: CASPER HERNANDEZ MD (PCP/Family) Primary Care Physician Patient Instructions: Diarrhea, Adult ED Add. Discharge Instructions: Continue current medication as prescribed by your primary care provider Recommend you follow-up with your primary care provider to arrange for further evaluation by general surgery or GI specialist WARNER MARCOS DO Nov 22, 2020 01:57
[2020-11-22 03:16] LABS: BASOPHILS % (AUTO) 1 % (0-10); EOSINOPHILS # (AUTO) 0.1 10^3/uL (0.0-0.3); EOSINOPHILS % (AUTO) 2 % (0-10); HEMATOCRIT 33 % (35-52); HEMOGLOBIN 9.7 G/DL (11.5-16.0); LYMPHOCYTES # (AUTO) 1.2 X 10^3 (1.0-4.0); LYMPHOCYTES % (AUTO) 25 % (12-44); MEAN CORPUSCULAR HEMOGLOBIN 28 PG (25-34); MEAN CORPUSCULAR HGB CONC 30 G/DL (32-36); MEAN CORPUSCULAR VOLUME 93 FL (80-99); MEAN PLATELET VOLUME 10.1 FL (7.4-10.4); MONOCYTES # (AUTO) 0.4 X 10^3 (0.0-1.0); MONOCYTES % (AUTO) 8 % (0-12); NEUTROPHILS % (AUTO) 64 % (42-75); PLATELET COUNT 208 10^3/uL (130-400); WHITE BLOOD COUNT 4.6 10^3/uL (4.3-11.0)
[2020-11-22 03:34] LABS: ALANINE AMINOTRANSFERASE 7 U/L (0-55); ALBUMIN 3.2 GM/DL (3.2-4.5); ALKALINE PHOSPHATASE 124 U/L (40-136); BILIRUBIN,TOTAL 0.2 MG/DL (0.1-1.0); BUN/CREATININE RATIO 15; CALCIUM 9.2 MG/DL (8.5-10.1); CARBON DIOXIDE 23 MMOL/L (21-32); CHLORIDE 107 MMOL/L (98-107); CREATININE SERUM 0.89 MG/DL (0.60-1.30); GFR ESTIMATED > 60; GLUCOSE 95 MG/DL (70-105); POTASSIUM 4.5 MMOL/L (3.6-5.0); SODIUM 138 MMOL/L (135-145); TOTAL PROTEIN 6.2 GM/DL (6.4-8.2)
== END 2020-11-22 03:52 | disposition home or self-care (01) ==
LOC: EDUNIT# 01:43 → ER FS 01:46
DX: K52.9 Noninfective gastroenteritis and colitis, unspecified (principal); I12.9 Hypertensive chronic kidney disease with stage 1 through stage 4 chronic kidney disease, or unspecified chronic kidney disease; N18.4 Chronic kidney disease, stage 4 (severe); Z88.0 Allergy status to penicillin; Z88.1 Allergy status to other antibiotic agents; Z88.2 Allergy status to sulfonamides; Z88.8 Allergy status to other drugs, medicaments and biological substances; Z79.2 Long term (current) use of antibiotics; Z79.899 Other long term (current) drug therapy
CPT/HCPCS: 36415; 80053; 85025

== ENCOUNTER → 2020-11-24 | Outpatient (CLI) | payer MEDICARE, MEDICAID ==
--- NOTE | 2020-11-24 11:18 | Diagnostic Imaging Report ---
PROCEDURE: MR imaging cervical spine without contrast. TECHNIQUE: Multiplanar, multisequence MR imaging of the cervical spine was performed without contrast. INDICATION: Chronic cervical spine pain. COMPARISON: There are no prior studies available for comparison. FINDINGS: The T2 parasagittal images show postsurgical changes consistent with an anterior fusion of C4, C5 and C6. The orthopedic hardware seems to be in good position. There is mild reversal of the normal lordosis of the cervical spine in the region of the fusion. This finding is nonspecific and could be secondary to muscle spasm and/or positioning. There is no evidence for a high-grade central stenosis at any of the fused levels. There is perhaps borderline central stenosis at C4-C5 and C5-C6. There is no neural foraminal narrowing identified however. At the C3-C4 level there is a disc bulge centrally. The disc indents the ventral aspect of the thecal sac and narrows the AP diameter to 7.9 mm. There does not appear to be any significant neural foraminal narrowing at this level. There is also a slight disc bulge centrally at the C2-C3 level. The AP diameter of the thecal sac at this level is narrowed to 7.1 mm. There is no neural foraminal narrowing identified at C2-C3. At the C6-C7 level there is also a small disc bulge centrally. The AP diameter of the thecal sac is narrowed to 10.3 mm. There is no significant neural foraminal narrowing identified however. There is no abnormal signal arising from the cord or the vertebral bodies to indicate an acute abnormality. There is no sign of a paraspinal mass. The expected carotid and vertebral flow voids are evident bilaterally. IMPRESSION: 1. There are postsurgical changes consistent with an anterior fusion of C4, C5 and C6. The orthopedic hardware appears to be in good position. There is borderline central stenosis at C4-C5 and C5-C6 but there is no significant neural foraminal narrowing. 2. There is also moderate central stenosis at C3-C4 and C2-C3. There is no neural foraminal narrowing at these levels however. 3. There is no sign of an acute bony abnormality or of a cord lesion. Dictated by: Dictated on workstation # [id number]
== END ==
LOC: RAD 08:45
PROVIDERS: ATTEND Nurse Practitioner Family
DX: R20.2 Paresthesia of skin (principal); M48.02 Spinal stenosis, cervical region; M43.22 Fusion of spine, cervical region
CPT/HCPCS: 72141

== ENCOUNTER → 2021-02-05 | Outpatient (CLI) | payer MEDICARE, MEDICAID ==
--- NOTE | 2021-02-05 09:55 | Diagnostic Imaging Report ---
Right hip at 9:31. Indication: Right hip pain AP and lateral views were obtained. There is no fracture, dislocation or acute bony abnormality evident. There is deformity of the pubic symphysis. This finding was also present in the prior pelvis exam of 09/11/2020, consequently I suspect this is a sequela of prior trauma as opposed to an acute or subacute injury. There is moderate degenerative disease of the hip joint. The soft tissues are unremarkable. Impression: 1. There is no acute bony abnormality. 2. The deformity of the pubic symphysis is most likely long-standing in nature. 3. If clinical concern regarding an underlying abnormality persists, then MRI should be considered for further study. Dictated by: Dictated on workstation # [id number]
== END ==
LOC: RAD FS 09:10
PROVIDERS: ATTEND Family Medicine
DX: M25.551 Pain in right hip (principal)
CPT/HCPCS: 73502

== ENCOUNTER 2022-11-07 14:47 | Emergency (ER) | payer MEDICARE, MEDICAID ==
--- NOTE | 2022-11-07 15:05 | ED General ---
General Chief Complaint: General Problems/Pain Stated Complaint: GEN PAIN Source of Information: Patient Exam Limitations: No Limitations History of Present Illness Date Seen by Provider: Nov 07, 2022 Time Seen by Provider: 14:50 Initial Comments Patient is a 67-year-old female with history of chronic pain, myasthenia gravis, and recent spider bite who presents emergency department with poorly controlled chronic pain. The patient apparently ran out of her twice daily morphine 3 days ago which was not refilled until earlier this afternoon. Patient was last seen by her primary care provider 4 days ago and was prescribed antibiotic for treatment of a spider bite. Patient has taken the antibiotic sporadically but overall her spider bite has improved and the wound has drained. She has not had fevers or sweats. She has not had nausea vomiting or abdominal pain. She does report generalized musculoskeletal pain and is skin pain. She denies dizziness lightheadedness and is ambulatory. Patient lives by herself and is assisted with her medications by her brother and ohfgae-cu-ayj who are present at bedside. Timing/Duration: 3-4 Days Severity: Moderate Modifying Factors: improves with Other Associated Systoms: Other Allergies and Home Medications Allergies Coded Allergies: Penicillins (Verified Allergy, Unknown, 03/22/19) sulfamethoxazole (Verified Allergy, Unknown, 03/22/19) trimethoprim (Verified Allergy, Unknown, 03/22/19) zolpidem (Verified Allergy, Unknown, 03/22/19) Patient Home Medication List Home Medication List Reviewed: Yes Ondansetron (Ondansetron Odt) 4 Mg Tab.rapdis, 4 MG PO Q4H PRN for NAUSEA/VOMITING Prescribed by: PARISA SINGH MD on 03/22/191938 Review of Systems Review of Systems Constitutional: see HPI EENTM: see HPI Respiratory: see HPI Cardiovascular: see HPI Gastrointestinal: see HPI Genitourinary: see HPI Musculoskeletal: see HPI Skin: see HPI Psychiatric/Neurological: See HPI Hematologic/Lymphatic: See HPI Immunological/Allergic: see HPI All Other Systems Reviewed Negative Unless Noted: No Past Wrmzqyt-Axqvcw-Nziden Hx Patient Social History Tobacco Use?: No Seasonal Allergies Seasonal Allergies: No Past Medical History Surgeries: Yes (gastic surgery, neck surgery) Respiratory: No Cardiac: No Hypertension Neurological: Yes (fibromyalgia) Genitourinary: Yes (Stage IV renal failure) Renal Failure Gastrointestinal: Yes Ulcer Musculoskeletal: No Endocrine: No HEENT: No Cancer: No Psychosocial: Yes Depression Integumentary: No Blood Disorders: No Physical Exam Vital Signs Capillary Refill : Height, Weight, BMI Height: 5'5.00" Weight: 122lbs. oz. 55.718260ai; 20.00 BMI Method:Stated General Appearance: No Apparent Distress, WD/WN Eyes: Bilateral Eye Normal Inspection, Bilateral Eye PERRL HEENT: Normal ENT Inspection, Moist Mucous Membranes Neck: Non Tender, Supple Respiratory: Lungs Clear Cardiovascular: Regular Rate, Rhythm Gastrointestinal: Non Tender, Soft Skin: Other (Resolving cellulitis of right flexor wrist. No induration or weeping.) Focused Exam Sepsis Stage: Ruled Out Progress/Results/Core Measures Suspected Sepsis SIRS Temperature: Pulse: Respiratory Rate: Blood Pressure / Mean: Results/Orders Vital Signs/I&O Capillary Refill : Departure Communication (Admissions) Patient with poorly controlled chronic pain currently out of medications. Patient does have refill available at local pharmacy. No nausea or vomiting. Patient denies dizziness or lightheadedness is able to tolerate fluids in the emergency department. Patient does not have any new complaint recent illnesses and denies change of underlying or chronic medical condition. Patient does have antibiotics available to her for treatment of spider bite/cellulitis which is currently improving. No other acute symptoms or complaints. Recommendations are continued management of his cellulitis and chronic pain per her primary care physician. Impression Primary Impression: Encounter for medical screening examination Disposition: HOME, SELF-CARE Condition: Stable Departure-Patient Inst. Decision time for Depature: 15:24 Referrals: CASPER HERNANDEZ MD (PCP/Family) Primary Care Physician Patient Instructions: CHRONIC PAIN, Cellulitis (Skin Infection), Adult ED Add. Discharge Instructions: Jeanne was evaluated in the emergency department for chronic pain and cellulitis related to a spider bite. She does not have an emergent medical condition. Please follow the instructions given by her primary care physician regarding pain medication antibiotics and follow-up with PCP in 1 week for reevaluation. All discharge instructions reviewed with patient and/or family. Voiced understanding. SIRISHA BERRIOS DO Nov 07, 2022 15:05
[2022-11-07 15:31] VITALS: BP 154/76
== END 2022-11-07 15:35 | disposition home or self-care (01) ==
LOC: EDUNIT# 14:47 → ER FS 14:49
DX: G89.29 Other chronic pain (principal); L03.113 Cellulitis of right upper limb; Z79.891 Long term (current) use of opiate analgesic; Z28.310 Unvaccinated for COVID-19
CPT/HCPCS: 99281

== ENCOUNTER 2022-11-17 14:46 | Emergency (ER) | payer MEDICARE, MEDICAID ==
[~2022-11-17] VITALS: Ht 167 cm; Wt 45.0 kg
[2022-11-17 14:50] VITALS: BP 145/64
[2022-11-17] MEDS ORDERED: oxyCODONE/APAP 5/325MG (PERCOCET 5) TABLET PO ONE (15:15)
--- NOTE | 2022-11-17 15:21 | ED Upper Extremity ---
General Chief Complaint: Upper Extremity Stated Complaint: FALL; RT ARM INJ Nursing Triage Note: PT FELL THIS AFTERNOON AFTER LOSING HER BALANCE AND HAS RIGHT HUMERUS PAIN. PT WENT TO URGENT CARE AND HAD AN XRAY AND RECEIVED A SLING. THEY SENT HER TO ER FOR A "FASTER ORTHO REFERRAL". Source: patient Exam Limitations: no limitations History of Present Illness Date Seen by Provider: Nov 17, 2022 Time Seen by Provider: 15:00 Initial Comments Patient is a 67-year-old right-handed female who presents with accidental fall from home with right shoulder pain/injury. Patient denies hitting her head. She denies headache, loss consciousness, neck pain. She she is not on anticoagulation fall. Patient states she shuffles her feet which caused her to trip and fall. Patient landed directly on her right shoulder and reports isolated right shoulder pain. She was evaluated at [facility] and diagnosed with a right shoulder fracture placed in a sling. Patient takes instant release morphine twice daily. Pain is currently mild to moderate. No other injuries or complaints. Patient lives by herself but has use of walker, cane and bedside commode. She has family members that care for her and attend her daily. Onset: this afternoon Pain/Injury Location: right shoulder Method of Injury: other Modifying Factors: Improves With Other Allergies and Home Medications Allergies Coded Allergies: Penicillins (Verified Allergy, Unknown, 03/22/19) sulfamethoxazole (Verified Allergy, Unknown, 03/22/19) trimethoprim (Verified Allergy, Unknown, 03/22/19) zolpidem (Verified Allergy, Unknown, 03/22/19) Patient Home Medication List Home Medication List Reviewed: Yes Ondansetron (Ondansetron Odt) 4 Mg Tab.rapdis, 4 MG PO Q4H PRN for NAUSEA/VOMITING Prescribed by: PARISA SINGH MD on 03/22/191938 Review of Systems Constitutional: see HPI EENTM: see HPI Respiratory: see HPI Cardiovascular: see HPI Gastrointestinal: see HPI Genitourinary: see HPI Musculoskeletal: see HPI Past Eamaruv-Baafhe-Lrxgjw Hx Patient Social History Tobacco Use?: Yes Tobacco type used: Cigarettes Smoking Status: Former Smoker Use of E-Cig and/or Vaping dev: No Substance use?: No Alcohol Use?: Yes Alcohol type: Beer Pt feels they are or have been: Yes Immunizations Up To Date First/Initial COVID19 Vaccinat: Denies Second COVID19 Vaccination Jesse: Denies Third COVID19 Vaccination Date: Denies Seasonal Allergies Seasonal Allergies: No Past Medical History Surgery/Hospitalization HX: Fibromyalgia; Cholecysitis; Appendectomy; Neck surgery; Partial gastrectomy Surgeries: Yes (gastic surgery, neck surgery) Respiratory: No Cardiac: No Hypertension Neurological: Yes (fibromyalgia) Genitourinary: Yes (Stage IV renal failure) Renal Failure Gastrointestinal: Yes Ulcer Musculoskeletal: No Endocrine: No HEENT: No Cancer: No Psychosocial: Yes Depression Integumentary: No Blood Disorders: No Physical Exam Vital Signs Vital Signs - First Documented 11/17/22 14:50 Temp 36.1 Pulse 75 Resp 16 B/P (MAP) 145/64 (91) Pulse Ox 99 O2 Delivery Room Air Capillary Refill : Less Than 3 Seconds Height, Weight, BMI Height: 5'5.00" Weight: 122lbs. oz. 55.415434pb; 16.00 BMI Method:Stated General Appearance: WD/WN, no apparent distress Neck: full range of motion Cardiovascular: regular rate, rhythm Shoulder: bone tenderness; No deformity, No ecchymosis; limited ROM (Right shoulder), pain, soft tissue tenderness, swelling Wrist: Yes non-tender Hand: normal inspection, non-tender Progress/Results/Core Measures Results/Orders My Orders Orders - SIRISHA BERRIOS DO Oxycodone/Apap 5/325mg Tablet (Percocet (11/17/22 15:15) Vital Signs/I&O 11/17/22 14:50 Temp 36.1 Pulse 75 Resp 16 B/P (MAP) 145/64 (91) Pulse Ox 99 O2 Delivery Room Air Blood Pressure Mean: 91 Departure Communication (Admissions) Outside imaging studies reviewed. Nondisplaced, right shoulder fracture evident on x-ray. Patient in right arm sling, no neurovascular defect, humerus, elbow or forearm injury evident on physical exam. No neck pain or midline tenderness pain addressed. Recommendations are supportive care and orthopedic follow-up. I discussed with the patient the need to perform activities of daily living, and expressed concern that she may not be able to perform these functions with or without family members assisting her despite being equipped with outpatient resources. Short-term hospital admission/rehab hospital admission offered for treatment of acute condition and patient's safety. Patient declines services and will be discharged home per her request with instructions to not to attempt to stand and walk or transfer to the commode without the assistance of family members. He is otherwise to continue home pain medications and follow-up with on-call orthopedic physician. Return precautions reviewed. Patient verbalizes understanding agreement with discharge instructions prior to departure. Impression Primary Impression: Shoulder fracture, right Disposition: 01 HOME, SELF-CARE Condition: Stable Departure-Patient Inst. Decision time for Depature: 15:25 Referrals: CASPER HERNANDEZ MD (PCP/Family) Primary Care Physician SHEILA AHUJA MD Patient Instructions: Shoulder Fracture (DC) Add. Discharge Instructions: You were evaluated in the emergency department for fall resulting in a right shoulder injury/fracture. This is managed nonoperatively and requires right arm sling and PCP/orthopedic follow-up with physical therapy/rehab referral. Please do not attempt to walk, stand or transfer to the commode without assistance. Wear right arm sling and limit right arm/hand use. Follow-up with Dr. Ahuja on-call for orthopedic surgery. In the meantime if you develop new or concerning symptoms, return to the emergency department All discharge instructions reviewed with patient and/or family. Voiced understanding. SIRISHA BERRIOS DO Nov 17, 2022 15:21
== END 2022-11-17 15:30 | disposition home or self-care (01) ==
LOC: EDUNIT# 14:46 → ER FS 14:48
DX: S42.91XA Fracture of right shoulder girdle, part unspecified, initial encounter for closed fracture (principal); I12.9 Hypertensive chronic kidney disease with stage 1 through stage 4 chronic kidney disease, or unspecified chronic kidney disease; N18.4 Chronic kidney disease, stage 4 (severe); Z87.891 Personal history of nicotine dependence; Z28.310 Unvaccinated for COVID-19; W18.30XA Fall on same level, unspecified, initial encounter; Y92.009 Unspecified place in unspecified non-institutional (private) residence as the place of occurrence of the external cause
CPT/HCPCS: 99283

== ENCOUNTER 2023-02-07 12:18 | Emergency (ER) | payer MEDICARE, MEDICAID ==
[2023-02-07] MEDS ORDERED: NS IV 1000 ML 1,000 ML IV STA (12:38)
[2023-02-07] MEDS ORDERED: KETOROLAC 15 MG/ML VIAL IVP STA (12:38)
[2023-02-07] MEDS ORDERED: ONDANSETRON 4 MG/2 ML (SDV) Z0FRAN IVP STA (12:38)
--- NOTE | 2023-02-07 12:46 | ED General ---
General Chief Complaint: - Reproductive Stated Complaint: MICHI FLANK PAIN; URINARY INCONTINENCE Source of Information: Patient History of Present Illness Date Seen by Provider: February 07, 2023 Time Seen by Provider: 12:21 Initial Comments 68-year-old female presenting with complaints of sudden onset of right flank pain since last night. She has had urinary incontinence along with this. She states that she has some nausea and has not been wanting to eat or drink very much. She has been having trouble with her memory for a long time now. She states that she does not feel well and with the severe pain she had family bring her to the emergency department. She denies any recent fall or injury to cause pain. She has a family history of kidney stones but personally has not had a kidney stone that she is aware of. Timing/Duration: 12-24 Hours Severity: Severe Modifying Factors: worse with Movement Associated Systoms: No Chest Pain, No Cough, No Diaphoresis, No Fever/Chills, No Headaches; Loss of Appetite, Malaise, Nausea/Vomiting; No Seizure, No Shortness of Air, No Syncope; Weakness Allergies and Home Medications Allergies Coded Allergies: Penicillins (Verified Allergy, Unknown, 03/22/19) sulfamethoxazole (Verified Allergy, Unknown, 03/22/19) trimethoprim (Verified Allergy, Unknown, 03/22/19) zolpidem (Verified Allergy, Unknown, 03/22/19) Patient Home Medication List Home Medication List Reviewed: Yes Methocarbamol (Methocarbamol) 750 Mg Tablet, 750 MG PO Q8H PRN for muscle spasm/flank pain Prescribed by: FARA ALICIA on 02/07/23 1517 Ondansetron (Ondansetron Odt) 4 Mg Tab.rapdis, 4 MG PO Q4H PRN for NAUSEA/VOMITING Prescribed by: PARISA SINGH MD on 03/22/19 1939 Review of Systems Review of Systems Constitutional: see HPI; No fever; malaise EENTM: no symptoms reported Respiratory: no symptoms reported Cardiovascular: no symptoms reported Gastrointestinal: see HPI Genitourinary: see HPI Musculoskeletal: see HPI Skin: no symptoms reported Psychiatric/Neurological: See HPI Past Dhgudxk-Rrofqr-Khknef Hx Immunizations Up To Date First/Initial COVID19 Vaccinat: Denies Second COVID19 Vaccination Jesse: Denies Third COVID19 Vaccination Date: Denies Seasonal Allergies Seasonal Allergies: No Past Medical History Surgery/Hospitalization HX: Fibromyalgia; Cholecysitis; Appendectomy; Neck surgery; Partial gastrectomy Surgeries: Yes (gastic surgery, neck surgery) Respiratory: No Cardiac: No Hypertension Neurological: Yes (fibromyalgia) Genitourinary: Yes (Stage IV renal failure) Renal Failure Gastrointestinal: Yes Ulcer Musculoskeletal: No Endocrine: No HEENT: No Cancer: No Psychosocial: Yes Depression Integumentary: No Blood Disorders: No Physical Exam Vital Signs Vital Signs - First Documented 02/07/23 12:20 Temp 36.9 Pulse 107 Resp 18 B/P (MAP) 161/77 (105) Pulse Ox 99 O2 Delivery Room Air Capillary Refill : Height, Weight, BMI Height: 5'5.00" Weight: 122lbs. oz. [id number]; 16.00 BMI Method:Stated General Appearance: Chronically ill, Cachetic, Mild Distress HEENT: PERRL/EOMI; No Moist Mucous Membranes (slightly dry mucous membranes) Neck: Non Tender, Supple Respiratory: Lungs Clear, No Accessory Muscle Use, No Respiratory Distress, Decreased Breath Sounds Cardiovascular: Regular Rate, Rhythm, Normal Peripheral Pulses Gastrointestinal: Normal Bowel Sounds, No Pulsatile Mass, Soft; No Guarding; Tenderness (diffuse mild tenderness to palpation, severe pain with palpation of right flank) Rectal: Deferred Extremity: Normal Capillary Refill, Normal Inspection, No Pedal Edema Neurologic/Psychiatric: Alert, Oriented x3 Skin: Warm/Dry Focused Exam Lactate Level 02/07/23 12:30: Lactic Acid Level 2.02*H Lactic Acid Level Laboratory Tests Test 02/07/23 12:30 Lactic Acid Level 2.02 MMOL/L (0.50-2.00) *H Progress/Results/Core Measures Suspected Sepsis SIRS Temperature: Pulse: Respiratory Rate: Laboratory Tests 02/07/23 12:30: White Blood Count 9.2 Blood Pressure / Mean: 02/07/23 12:30: Lactic Acid Level 2.02*H Laboratory Tests 02/07/23 12:30: Creatinine 0.71, Platelet Count 142, Total Bilirubin 0.5 Results/Orders Lab Results Laboratory Tests Test 02/07/23 12:30 02/07/23 12:38 Range/Units White Blood Count 9.2 4.3-11.0 10^3/uL Red Blood Count 4.08 3.80-5.11 10^6/uL Hemoglobin 12.6 11.5-16.0 g/dL Hematocrit 40 35-52 % Mean Corpuscular Volume 97 80-99 fL Mean Corpuscular Hemoglobin 31 25-34 pg Mean Corpuscular Hemoglobin Concent 32 32-36 g/dL Red Cell Distribution Width 15.1 H 10.0-14.5 % Platelet Count 142 130-400 10^3/uL Mean Platelet Volume 9.8 9.0-12.2 fL Immature Granulocyte % (Auto) 1 % Neutrophils (%) (Auto) 92 H 42-75 % Lymphocytes (%) (Auto) 4 L 12-44 % Monocytes (%) (Auto) 3 0-12 % Eosinophils (%) (Auto) 0 0-10 % Basophils (%) (Auto) 0 0-10 % Neutrophils # (Auto) 8.4 H 1.8-7.8 10^3/uL Lymphocytes # (Auto) 0.4 L 1.0-4.0 10^3/uL Monocytes # (Auto) 0.3 0.0-1.0 10^3/uL Eosinophils # (Auto) 0.0 0.0-0.3 10^3/uL Basophils # (Auto) 0.0 0.0-0.1 10^3/uL Immature Granulocyte # (Auto) 0.1 0.0-0.1 10^3/uL Neutrophils % (Manual) 89 % Lymphocytes % (Manual) 3 % Monocytes % (Manual) 2 % Band Neutrophils 6 % Platelet Estimate NORMAL Blood Morphology Comment NORMAL Sodium Level 140 135-145 MMOL/L Potassium Level 4.2 3.6-5.0 MMOL/L Chloride Level 102 98-107 MMOL/L Carbon Dioxide Level 24 21-32 MMOL/L Anion Gap 14 5-14 MMOL/L Blood Urea Nitrogen 16 7-18 MG/DL Creatinine 0.71 0.60-1.30 MG/DL Estimat Glomerular Filtration Rate 93 BUN/Creatinine Ratio 23 Glucose Level 98 70-105 MG/DL Lactic Acid Level 2.02 *H 0.50-2.00 MMOL/L Calcium Level 9.7 8.5-10.1 MG/DL Corrected Calcium 9.6 8.5-10.1 MG/DL Total Bilirubin 0.5 0.1-1.0 MG/DL Aspartate Amino Transf (AST/SGOT) 15 5-34 U/L Alanine Aminotransferase (ALT/SGPT) 11 0-55 U/L Alkaline Phosphatase 132 40-136 U/L Total Protein 7.0 6.4-8.2 GM/DL Albumin 4.1 3.2-4.5 GM/DL Lipase 32 8-78 U/L Urine Color YELLOW Urine Clarity CLEAR Urine pH 6.0 5-9 Urine Specific Rose 1.010 L 1.016-1.022 Urine Protein NEGATIVE NEGATIVE Urine Glucose (UA) NEGATIVE NEGATIVE Urine Ketones NEGATIVE NEGATIVE Urine Nitrite NEGATIVE NEGATIVE Urine Bilirubin NEGATIVE NEGATIVE Urine Urobilinogen 0.2 < = 1.0 MG/DL Urine Leukocyte Esterase NEGATIVE NEGATIVE Urine RBC (Auto) TRACE-I H NEGATIVE Urine RBC 0-2 /HPF Urine WBC RARE /HPF Urine Squamous Epithelial Cells RARE /HPF Urine Crystals NONE /LPF Urine Bacteria NEGATIVE /HPF Urine Casts NONE /LPF Urine Mucus NEGATIVE /LPF Urine Culture Indicated NO My Orders Orders - FARA ALICIA MD Comprehensive Metabolic Panel (02/07/23 12:38) Lipase (02/07/23 12:38) Ua Culture If Indicated (02/07/23 12:38) Ed Iv/Invasive Line Start (02/07/23 12:38) Cbc With Automated Diff (02/07/23 12:38) Ct Abdomen/Pelvis Wo (02/07/23 12:38) Lactic Acid Analyzer (02/07/23 12:38) Ns Iv 1000 Ml (Sodium Chloride 0.9%) (02/07/23 12:38) Ketorolac Injection (Toradol Injection) (02/07/23 12:38) Ondansetron Injection (Zofran Injectio (02/07/23 12:38) Manual Differential (02/07/23 12:30) Code/Resuscitation (02/07/23 13:01) Orphenadrine Inj (Ed Only) (Norflex Inje (02/07/23 13:22) Ct Abdomen/Pelvis W (02/07/23 13:22) Iohexol Injection (Omnipaque 350 Mg/Ml 1 (02/07/23 13:30) Received Contrast (Hold Metformin- Contr (02/07/23 13:30) Ns (Ivpb) (Sodium Chloride 0.9% Ivpb Bag (02/07/23 13:30) Medications Given in ED Current Medications Medications Dose Ordered Sig/Tanya Route Start Time Stop Time Status Last Admin Dose Admin Iohexol 100 ml ONCE ONCE IV 02/07/23 13:30 02/07/23 13:31 DC 02/07/23 13:45 75 ML Sodium Chloride 100 ml ONCE ONCE IV 02/07/23 13:30 02/07/23 13:31 DC 02/07/23 13:45 100 ML Vital Signs/I&O 02/07/23 02/07/23 12:20 15:26 Temp 36.9 36.9 Pulse 107 84 Resp 18 18 B/P (MAP) 161/77 (105) 166/75 Pulse Ox 99 95 O2 Delivery Room Air Room Air Capillary Refill : Progress Note #1: Progress Note Potential diagnosis of kidney stone, pyelonephritis, colitis, diverticulitis, appendicitis, cholecystitis, UTI. Obtain peripheral IV access and send labs for complete blood count, comprehensive metabolic profile, lactic acid, urinalysis. Give normal saline 1 L IV fluid bolus for hydration, Zofran 4 mg IV for nausea vomiting, Toradol 15 mg IV for pain. Patient states that she took her chronic morphine pain medication at home already for her fibromyalgia. She was still rating her pain an 8 or 9 out of 10. She has a CT scan ordered of the abdomen and pelvis without contrast to look for signs of kidney stones or intra-abdominal pathology to contribute to her pain and symptoms. Progress Note #2: Time: 13:00 Progress Note Lab called to say that her lactic acid was just over normal at 2.02. Her complete blood count showed white blood cell count of 9.2. She has some lower normal hemoglobin at 12.6. Her urinalysis did not show bacteria or nitrites or leukocyte esterase to indicate an infection. Specific gravity was 1,010 so not elevated to indicate dehydration. On my personal interpretation and review of the CT scan of the abdomen and pelvis without IV contrast I did not appreciate any acute obstruction. I did not see any definite kidney stones. She did have an atrophic left kidney and the right kidney was dilated. 1315 I reviewed the radiologist report and they felt she had increased stool burden and dilated right kidney but no definite kidney stone or ureteral obstruction. She also had dilated ducts in liver and recommend correlation with her LFTs. However, her LFTs were in normal range and not elevated. They did recommend post contrast CT to help look for possible ureteral stone and help highlight abdomen and pelvis in more detail. When I updated the patient she advised that she was still having pain to her side and would still get sudden spikes in her pain. She felt that she was too sick to go home. I advised her that we did not have any specific findings to indicate a need for admit just based off of her labs and urinalysis. Will try Norflex 60 mg IV to see if she might be having muscle spasms and see if that helps her pain. Will check back on her after the CT abdomen/pelvis with IV contrast is obtained. Progress Note #3: Time: 14:21 Progress Note I reviewed the radiologist reports on the CT scan abdomen pelvis with IV contrast. 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 She does have marked intrahepatic and extrahepatic biliary ductal dilatation but no obvious mass or obstruction. Nothing to account for her complaints of right flank pain with spasms. I updated the patient about the findings and that they did not appreciate any thing acute on the imaging to account for her symptoms and pain. Since her pain was a little improved after the muscle relaxer will prescribe a muscle relaxer for home. Patient was upset about having medications stopped by her primary care providers so encouraged to call them to arrange follow-up and to determine what medicine she should be on. I did speak with the [id number] who is one of her main caregivers. She had expressed concerns that the patient was not always taking care of herself like she should and was inconsistent with taking medicines. She canceled multiple appointments rather than follow-up with providers and that was part of why medications have been stopped. She stated that at times the patient would stop eating for several days as a way to protest not getting medicine when she wanted it and having to wait to get it at prescribed time. Stressed to patient that I did not have anything to indicate she needed admit to hospital. If she felt she needed more assistance she would have to work with family and PCP to arrange for assisted living or halfway care. Try taking the methocarbamol 750 mg p.o. every 8 hours to see if that would help with muscle spasms and pain. Stressed that this could make her feel more unsteady and she should be very careful with changing positions. Diagnostic Imaging Diagonstic Imaging: CT Plain Films/CT/US/NM/MRI: abdomen, pelvis Comments NAME: RYAN S[facility] REC#: [id number] PT STATUS: REG ER : 1955 PHYSICIAN: FARA ALICIA MD ADMIT DATE: 02/07/23/ER FS Draft Date of Exam:02/07/23 CT ABDOMEN/PELVIS WO PROCEDURE: CT abdomen and pelvis without contrast. TECHNIQUE: Multiple contiguous axial images were obtained through the abdomen and pelvis without the use of intravenous contrast. Auto Exposure Controls were utilized during the CT exam to meet ALARA standards for radiation dose reduction. INDICATION: Right flank pain and incontinence. No prior studies are available for comparison. FINDINGS: The lung bases are clear. There are multiple surgical clips in the region of the GE junction. No discrete liver mass is identified; however, the intrahepatic bile ducts are significantly dilated. No definite obstructing lesion is identified. No definite pancreatic mass is identified, although pancreas is somewhat limited without IV contrast. The spleen is unremarkable. No adrenal mass is identified. Left kidney contains a small hyperdense lesion in the cortex, perhaps a small hemorrhagic cyst. Right kidney does show some fairly significant distention to the renal pelvis, but no ureteral dilatation is seen. No renal calculi or ureteral calculi are identified. Aorta is calcified but nonaneurysmal. There is a large amount of stool in the colon. Colon appears to be non-obstructed. There is no ascites. Postoperative changes to the left hip are noted. IMPRESSION: 1. Significant intrahepatic biliary ductal dilatation without definite obstructing lesion. Correlation with liver enzymes and bilirubin would be recommended. There is also some moderate distention of the right renal pelvis, but no obstructing calculus is identified. Postcontrast CT may be useful for further evaluation. No other significant abnormality is seen apart from moderate stool in the colon. Dictated on workstation # [id number] Dict: 02/07/23 1257 Trans: 02/07/23 1307 [id number] Interpreted by: ALLISON BABB MD Electronically signed by: NAME: RYAN [facility] REC#: [id number] PT STATUS: REG ER : 1955 PHYSICIAN: FARA ALICIA MD ADMIT DATE: 02/07/23/ER FS Draft Date of Exam:02/07/23 CT ABDOMEN/PELVIS W PROCEDURE: CT abdomen and pelvis with contrast. TECHNIQUE: Multiple contiguous axial images were obtained through the abdomen and pelvis after administration of intravenous contrast. Auto Exposure Controls were utilized during the CT exam to meet ALARA standards for radiation dose reduction. All CT scans use one or more of the following dose optimizing techniques: automated exposure control, MA and/or KvP adjustment based on patient size and exam type or iterative reconstruction. INDICATION: Abnormal noncontrast CT. Study is performed for further evaluation. Correlation is made with the noncontrast CT earlier the same day. There is significant intrahepatic and extrahepatic biliary ductal dilatation. The extra hepatic bile duct is dilated up to approximate 14 mm. No definite common duct calculus or mass is identified. No pancreatic mass is identified. Spleen is unremarkable. Adrenal glands are unremarkable. The kidneys contain prominent extrarenal pelvis, particularly on the right. The extra renal pelvis is markedly dilated but no ureteral dilatation, calculus or mass is identified. Aorta is calcified but nonaneurysmal. Bowel loops are unremarkable apart from moderate stool. There is no ascites. The bladder is low in position in the pelvis, likely owing to pelvic relaxation. IMPRESSION: There is significant intrahepatic and extra hepatic bile duct dilatation without evidence of obstructing lesion. Bilateral renal pelvic dilatation, likely owing to extrarenal pelvis, particularly on the right. No calculus is detected. Dictated on workstation # [id number] Dict: 02/07/23 1410 Trans: 02/07/23 1416 [facility] [id number] Interpreted by: ALLISON BABB MD Electronically signed by: Reviewed: Reviewed by Me (I reviewed the radiologist report at 1314) Departure Impression Primary Impression: Acute right flank pain Disposition: 01 HOME, SELF-CARE Condition: Stable Departure-Patient Inst. Decision time for Depature: 15:16 Referrals: CASPER HERNANDEZ MD (PCP/Family) Primary Care Physician Patient Instructions: Flank Pain ED Add. Discharge Instructions: Your labs and CT scan look ok today and do not show anything bad to be causing your pain and spasms. Take the muscle relaxer to try and help with your pain and symptoms. Call and set up an appointment to see Dr. Hernandez and work with him about your pain and symptoms. Follow up with your psychiatrist to see what medicines they want you to take for your penitentiary conditions. All discharge instructions reviewed with patient and/or family. Voiced understanding. Scripts Methocarbamol (Methocarbamol) 750 Mg Tablet 750 MG PO Q8H PRN for muscle spasm/flank pain for 5 Days, #15 TAB 0 Refills Prov: FARA ALICIA MD 02/07/23 FARA ALICIA MD February 07, 2023 12:46
[2023-02-07 12:47] LABS: BASOPHILS % (AUTO) 0 % (0-10); EOSINOPHILS % (AUTO) 0 % (0-10); HEMATOCRIT 40 % (35-52); HEMOGLOBIN 12.6 g/dL (11.5-16.0); LYMPHOCYTES # (AUTO) 0.4 10^3/uL (1.0-4.0); LYMPHOCYTES % (AUTO) 4 % (12-44); MEAN CORPUSCULAR HEMOGLOBIN 31 pg (25-34); MEAN CORPUSCULAR HGB CONC 32 g/dL (32-36); MEAN CORPUSCULAR VOLUME 97 fL (80-99); MEAN PLATELET VOLUME 9.8 fL (9.0-12.2); MONOCYTES # (AUTO) 0.3 10^3/uL (0.0-1.0); MONOCYTES % (AUTO) 3 % (0-12); NEUTROPHILS # (AUTO) 8.4 10^3/uL (1.8-7.8); NEUTROPHILS % (AUTO) 92 % (42-75); PLATELET COUNT 142 10^3/uL (130-400); WHITE BLOOD COUNT 9.2 10^3/uL (4.3-11.0)
[2023-02-07 12:54] LABS: BILIRUBIN,URINE NEGATIVE (NEGATIVE); CLARITY,URINE CLEAR; COLOR,URINE YELLOW; GLUCOSE, URINE (UA) NEGATIVE (NEGATIVE); KETONES,URINE NEGATIVE (NEGATIVE); LEUKOCYTE ESTERASE ,URINE NEGATIVE (NEGATIVE); NITRITE,URINE NEGATIVE (NEGATIVE); PROTEIN,URINE NEGATIVE (NEGATIVE)
[2023-02-07 13:00] LABS: BACTERIA,URINE NEGATIVE /HPF; RBC,URINE 0-2 /HPF; SQUAMOUS EPITHELIAL CELL,UR RARE /HPF; WBC,URINE RARE /HPF
[2023-02-07 13:04] LABS: POTASSIUM 4.2 MMOL/L (3.6-5.0)
[2023-02-07 13:05] LABS: ALBUMIN 4.1 GM/DL (3.2-4.5); BILIRUBIN,TOTAL 0.5 MG/DL (0.1-1.0); CALCIUM 9.7 MG/DL (8.5-10.1); CREATININE SERUM 0.71 MG/DL (0.60-1.30)
--- NOTE | 2023-02-07 13:08 | Diagnostic Imaging Report ---
PROCEDURE: CT abdomen and pelvis without contrast. TECHNIQUE: Multiple contiguous axial images were obtained through the abdomen and pelvis without the use of intravenous contrast. Auto Exposure Controls were utilized during the CT exam to meet ALARA standards for radiation dose reduction. INDICATION: Right flank pain and incontinence. No prior studies are available for comparison. FINDINGS: The lung bases are clear. There are multiple surgical clips in the region of the GE junction. No discrete liver mass is identified; however, the intrahepatic bile ducts are significantly dilated. No definite obstructing lesion is identified. No definite pancreatic mass is identified, although pancreas is somewhat limited without IV contrast. The spleen is unremarkable. No adrenal mass is identified. Left kidney contains a small hyperdense lesion in the cortex, perhaps a small hemorrhagic cyst. Right kidney does show some fairly significant distention to the renal pelvis, but no ureteral dilatation is seen. No renal calculi or ureteral calculi are identified. Aorta is calcified but nonaneurysmal. There is a large amount of stool in the colon. Colon appears to be non-obstructed. There is no ascites. Postoperative changes to the left hip are noted. IMPRESSION: 1. Significant intrahepatic biliary ductal dilatation without definite obstructing lesion. Correlation with liver enzymes and bilirubin would be recommended. There is also some moderate distention of the right renal pelvis, but no obstructing calculus is identified. Postcontrast CT may be useful for further evaluation. No other significant abnormality is seen apart from moderate stool in the colon. Dictated by: Dictated on workstation # [id number]
[2023-02-07 13:09] LABS: BAND NEUTROPHILS 6 %; NEUTROPHILS % (MANUAL) 89 %
[2023-02-07 13:10] LABS: LYMPHOCYTES % (MANUAL) 3 %; MONOCYTES % (MANUAL) 2 %; PLATELET ESTIMATE NORMAL; RBC MORPH NORMAL
[2023-02-07] MEDS ORDERED: ORPHENADRINE 60 MG/2 ML (NORFLEX) AMP (ED ONLY) IVP STA (13:22)
[2023-02-07] MEDS ORDERED: NS 100 ML (IVPB) BAG IV ONE (13:30)
[2023-02-07] MEDS ORDERED: HOLD METFORMIN - RECEIVED CONTRAST 20 ML VIAL IV SCH (13:30)
[2023-02-07] MEDS ORDERED: IOHEXOL 350 MG/ML 100 ML (OMNIPAQUE 350) VIAL IV ONE (13:30)
--- NOTE | 2023-02-07 14:17 | Diagnostic Imaging Report ---
PROCEDURE: CT abdomen and pelvis with contrast. TECHNIQUE: Multiple contiguous axial images were obtained through the abdomen and pelvis after administration of intravenous contrast. Auto Exposure Controls were utilized during the CT exam to meet ALARA standards for radiation dose reduction. All CT scans use one or more of the following dose optimizing techniques: automated exposure control, MA and/or KvP adjustment based on patient size and exam type or iterative reconstruction. INDICATION: Abnormal noncontrast CT. Study is performed for further evaluation. Correlation is made with the noncontrast CT earlier the same day. There is significant intrahepatic and extrahepatic biliary ductal dilatation. The extra hepatic bile duct is dilated up to approximate 14 mm. No definite common duct calculus or mass is identified. No pancreatic mass is identified. Spleen is unremarkable. Adrenal glands are unremarkable. The kidneys contain prominent extrarenal pelvis, particularly on the right. The extra renal pelvis is markedly dilated but no ureteral dilatation, calculus or mass is identified. Aorta is calcified but nonaneurysmal. Bowel loops are unremarkable apart from moderate stool. There is no ascites. The bladder is low in position in the pelvis, likely owing to pelvic relaxation. IMPRESSION: There is significant intrahepatic and extra hepatic bile duct dilatation without evidence of obstructing lesion. Bilateral renal pelvic dilatation, likely owing to extrarenal pelvis, particularly on the right. No calculus is detected. Dictated by: Dictated on workstation # [id number]
[2023-02-07] MEDS ORDERED: METH-732 PO (15:17)
[2023-02-07 15:26] VITALS: BP 166/75
== END 2023-02-07 15:27 | disposition home or self-care (01) ==
LOC: EDUNIT# 12:18 → ER FS 12:20
DX: K83.8 Other specified diseases of biliary tract (principal); Z90.49 Acquired absence of other specified parts of digestive tract; Z84.1 Family history of disorders of kidney and ureter; Z28.310 Unvaccinated for COVID-19
CPT/HCPCS: 36415; 74176; 74177; 80053; 81000; 83605; 83690; 85007; 85027; Q9967

== ENCOUNTER 2023-08-11 09:38 | Emergency (ER) | payer MEDICARE, MEDICAID ==
[~2023-08-11 09:38] MED LIST changes: +METH-732 PO
[2023-08-11] MEDS ORDERED: ASPIRIN 81 MG CHEWABLE TABLET PO ONE (10:00)
[2023-08-11] MEDS ORDERED: NITROGLYCERIN 2% OINT 1 GM UNIT DOSE PACKET TOP ONE (10:00)
[2023-08-11 10:03] LABS: BASOPHILS % (AUTO) 0 % (0-10); EOSINOPHILS % (AUTO) 0 % (0-10); HEMATOCRIT 36 % (35-52); HEMOGLOBIN 11.1 g/dL (11.5-16.0); LYMPHOCYTES # (AUTO) 0.6 10^3/uL (1.0-4.0); LYMPHOCYTES % (AUTO) 5 % (12-44); MEAN CORPUSCULAR HEMOGLOBIN 29 pg (25-34); MEAN CORPUSCULAR HGB CONC 31 g/dL (32-36); MEAN CORPUSCULAR VOLUME 92 fL (80-99); MEAN PLATELET VOLUME 10.1 fL (9.0-12.2); MONOCYTES # (AUTO) 0.4 10^3/uL (0.0-1.0); MONOCYTES % (AUTO) 4 % (0-12); NEUTROPHILS % (AUTO) 91 % (42-75); PLATELET COUNT 204 10^3/uL (130-400); WHITE BLOOD COUNT 11.1 10^3/uL (4.3-11.0)
--- NOTE | 2023-08-11 10:06 | ED Chest Pain ---
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 Is been going on for couple nights, mostly constant, worsening this morning. Has never had pain like this before. It is in the center of her chest and does not radiate anywhere. Feels more like a sharp pain that is worse with movement or touching it. Denies any shortness of breath, cough, fever, weakness, numbness, or any other concerns. Denies any history of DVT or PE, no lower extremity swelling or pain, no hemoptysis, no recent surgery. Does not take any hormones. Has not had any aspirin today and does not take blood thinners. Allergies and Home Medications Allergies Coded Allergies: Penicillins (Verified Allergy, Unknown, 03/22/19) sulfamethoxazole (Verified Allergy, Unknown, 03/22/19) trimethoprim (Verified Allergy, Unknown, 03/22/19) zolpidem (Verified Allergy, Unknown, 03/22/19) Patient Home Medication List Home Medication List Reviewed: Yes Methocarbamol (Methocarbamol) 750 Mg Tablet, 750 MG PO Q8H PRN for muscle spasm/flank pain Prescribed by: FARA ALICIA on 02/07/23 151 Ondansetron (Ondansetron Odt) 4 Mg Tab.rapdis, 4 MG PO Q4H PRN for NAUSEA/VOMITING Prescribed by: PARISA SINGH MD on 03/22/19 1939 Review of Systems Review of Systems Constitutional: No fever EENTM: No Symptoms Reported Respiratory: No Symptoms Reported Cardiovascular: See HPI Gastrointestinal: No Symptoms Reported Genitourinary: No Symptoms Reported Musculoskeletal: no symptoms reported Skin: no symptoms reported Psychiatric/Neurological: No Symptoms Reported Endocrine: No Symptoms Reported Hematologic/Lymphatic: No Symptoms Reported Past Mlonhps-Kuhysw-Amhjzf Hx Patient Social History Tobacco Use?: No Smoking Status: Former Smoker Immunizations Up To Date First/Initial COVID19 Vaccinat: Denies Second COVID19 Vaccination Jesse: Denies Third COVID19 Vaccination Date: Denies Seasonal Allergies Seasonal Allergies: No Past Medical History Surgery/Hospitalization HX: Fibromyalgia; Cholecysitis; Appendectomy; Neck surgery; Partial gastrectomy Surgeries: Yes (gastic surgery, neck surgery) Respiratory: No Cardiac: No Hypertension Neurological: Yes (fibromyalgia) Genitourinary: Yes (Stage IV renal failure) Renal Failure Gastrointestinal: Yes Ulcer Musculoskeletal: No Endocrine: No HEENT: No Cancer: No Psychosocial: Yes Depression Integumentary: No Blood Disorders: No Physical Exam Vital Signs Vital Signs - First Documented 08/11/23 09:40 Temp 36.2 Pulse 85 Resp 16 B/P (MAP) 202/83 (122) Pulse Ox 95 O2 Delivery Room Air Capillary Refill : Height, Weight, BMI Height: 5'5.00" Weight: 122lbs. oz. 55.212582bm; 16.00 BMI Method:Stated General Appearance: No Apparent Distress, Thin HEENT: PERRL/EOMI, Normal ENT Inspection, Pharynx Normal Neck: Full Range of Motion, Normal Inspection, Non Tender, Supple Respiratory: Chest Non Tender, Lungs Clear, Normal Breath Sounds, No Accessory Muscle Use, No Respiratory Distress Cardiovascular: Regular Rate, Rhythm, No Edema Gastrointestinal: Normal Bowel Sounds, Non Tender, Soft; No Distended, No Guarding Extremity: Normal Capillary Refill, Normal Inspection, Normal Range of Motion, Non Tender, No Calf Tenderness, No Pedal Edema Neurologic/Psychiatric: Alert, Oriented x3, No Motor/Sensory Deficits, Normal Mood/Affect Skin: Normal Color, Warm/Dry Progress/Results/Core Measures Results/Orders Lab Results Laboratory Tests Test 08/11/23 09:50 Range/Units White Blood Count 11.1 H 4.3-11.0 10^3/uL Red Blood Count 3.87 3.80-5.11 10^6/uL Hemoglobin 11.1 L 11.5-16.0 g/dL Hematocrit 36 35-52 % Mean Corpuscular Volume 92 80-99 fL Mean Corpuscular Hemoglobin 29 25-34 pg Mean Corpuscular Hemoglobin Concent 31 L 32-36 g/dL Red Cell Distribution Width 14.1 10.0-14.5 % Platelet Count 204 130-400 10^3/uL Mean Platelet Volume 10.1 9.0-12.2 fL Immature Granulocyte % (Auto) 1 % Neutrophils (%) (Auto) 91 H 42-75 % Lymphocytes (%) (Auto) 5 L 12-44 % Monocytes (%) (Auto) 4 0-12 % Eosinophils (%) (Auto) 0 0-10 % Basophils (%) (Auto) 0 0-10 % Neutrophils # (Auto) 10.0 H 1.8-7.8 10^3/uL Lymphocytes # (Auto) 0.6 L 1.0-4.0 10^3/uL Monocytes # (Auto) 0.4 0.0-1.0 10^3/uL Eosinophils # (Auto) 0.0 0.0-0.3 10^3/uL Basophils # (Auto) 0.0 0.0-0.1 10^3/uL Immature Granulocyte # (Auto) 0.1 0.0-0.1 10^3/uL Neutrophils % (Manual) 91 % Lymphocytes % (Manual) 6 % Monocytes % (Manual) 2 % Eosinophils % (Manual) 1 % Prothrombin Time 13.7 12.2-14.7 SEC INR Comment 1.0 0.8-1.4 Activated Partial Thromboplast Time 30 24-35 SEC Sodium Level 138 135-145 MMOL/L Potassium Level 3.4 L 3.6-5.0 MMOL/L Chloride Level 100 98-107 MMOL/L Carbon Dioxide Level 28 21-32 MMOL/L Anion Gap 10 5-14 MMOL/L Blood Urea Nitrogen 16 7-18 MG/DL Creatinine 0.77 0.60-1.30 MG/DL Estimat Glomerular Filtration Rate 84 BUN/Creatinine Ratio 21 Glucose Level 92 70-105 MG/DL Calcium Level 9.2 8.5-10.1 MG/DL Corrected Calcium 9.5 8.5-10.1 MG/DL Magnesium Level 1.8 1.6-2.4 MG/DL Total Bilirubin 0.4 0.1-1.0 MG/DL Aspartate Amino Transf (AST/SGOT) 18 5-34 U/L Alanine Aminotransferase (ALT/SGPT) 11 0-55 U/L Alkaline Phosphatase 106 40-136 U/L Troponin I < 0.30 <0.30 NG/ML Total Protein 6.5 6.4-8.2 GM/DL Albumin 3.6 3.2-4.5 GM/DL Lipase 21 8-78 U/L My Orders Orders - JESS BLACKWOOD MD Cbc And Automated Diff (08/11/23 09:57) Magnesium (08/11/23 09:57) Chest 1 View Ap/Pa Only (08/11/23 09:57) Ekg Tracing (08/11/23 09:57) Comprehensive Metabolic Panel (08/11/23 09:57) Protime With Inr (08/11/23 09:57) Partial Thromboplastin Time (08/11/23 09:57) O2 (08/11/23 09:57) Monitor-Rhythm Ecg Trace Only (08/11/23 09:57) Aspirin Chewable Tablet (Aspirin Chewabl (08/11/23 10:00) Ed Iv/Invasive Line Start (08/11/23 09:57) Lipase (08/11/23 09:57) Troponin I Fs (08/11/23 09:57) Nitroglycerin Ointment (Nitroglycerin (08/11/23 10:00) Manual Differential (08/11/23 09:50) Medications Given in ED Current Medications Medications Dose Ordered Sig/Tanya Route Start Time Stop Time Status Last Admin Dose Admin Aspirin 324 mg ONCE ONCE PO 08/11/23 10:00 08/11/23 10:01 DC 08/11/23 10:07 324 MG Nitroglycerin 1 inch ONCE ONCE TOP 08/11/23 10:00 08/11/23 10:01 DC 08/11/23 10:07 1 INCH Vital Signs/I&O 08/11/23 09:40 Temp 36.2 Pulse 85 Resp 16 B/P (MAP) 202/83 (122) Pulse Ox 95 O2 Delivery Room Air Progress Progress Note : Progress Note 68-year-old female with above history coming in due to chest pain. ABCs were intact and vitals are stable on presentation. Physical exam with recreation of her pain with any palpation on her chest. EKG ordered and interpreted by me showing no STEMI. An IV was placed and basic labs were obtained were significant for normal creatinine, potassium slightly low at 3.4 but not significant, negative troponin, normal lipase. Chest x-ray ordered and interpreted by me showing really subacute to chronic rib fractures. Suspect this is the cause of her pain. She does have morphine that she takes for pain and Tylenol. I will recommend some lidocaine patches that I will prescribe where she can place where she has maximal pain. She is low risk for PE per [place] criteria, and no clinical signs of a DVT. I believe she is otherwise stable for discharge with outpatient follow-up. She was sent home with strict return precautions. Initial ECG Impression Date: Aug 11, 2023 Initial ECG Impression Time: 09:44 Initial ECG Rate: 89 Initial ECG Rhythm: Normal Sinus Comment Narrow QRS, left axis deviation, no STEMI, no significant T wave inversions Diagnostic Imaging Diagonstic Imaging: Xray (chest) Comments NAME: RYAN SOMMERS [facility] REC#: [id number] PT STATUS: REG ER : 1955 PHYSICIAN: JESS BLACKWOOD MD ADMIT DATE: 08/11/23/ER FS Draft Date of Exam:08/11/23 CHEST 1 VIEW AP/PA ONLY CLINICAL INDICATION: Patient with chest pain. EXAM: Portable chest x-ray upright view. COMPARISON: Chest x-ray dated 11/22/2018. FINDINGS: Lungs/pleura: Lungs are clear. There is no pneumothorax. There is no pleural effusion. Mediastinum: Unremarkable. Pulmonary vasculature: Unremarkable. Heart: Unremarkable. Bones/extrathoracic soft tissue: There is cortical irregularity involving the lateral aspect of the right T9 rib which is of unknown age. Otherwise, there is interval development of chronic appearing fractures involving the posterior left lower ribs and posterior right ribs and lateral right lower ribs. There are degenerative spurs involving the thoracic spine. There is interval development of a compression fracture of the T10 vertebra. There are surgical clips overlying the epigastric region again seen. ACDF is again seen. IMPRESSION: 1: Lungs are clear. 2: There is cortical irregularity involving the lateral aspect of the right T9 rib which is of unknown age. If there is concern for acute fractures, x-rays of the right ribs would better evaluate. 3: Otherwise, there is interval development of multiple chronic appearing bilateral rib fractures. Dictated on workstation # [id number] Dict: 08/11/23 1010 Trans: 08/11/23 1017 LYNETTE [id number] Interpreted by: JADIEL JIMENEZ MD Electronically signed by: Departure Impression Primary Impression: Rib fractures Qualified Codes: S22.43XA - Multiple fractures of ribs, bilateral, initial encounter for closed fracture Additional Impression: Chest pain Qualified Codes: R07.82 - Intercostal pain Disposition: HOME, SELF-CARE Condition: Stable Departure-Patient Inst. Decision time for Depature: 11:00 Referrals: CASPER HERNANDEZ MD (PCP/Family) Primary Care Physician Patient Instructions: Chest Pain, Adult ED Add. Discharge Instructions: We are not seeing any evidence of anything life-threatening such as a heart attack. You do have some old rib fractures that likely are causing pain. Take your morphine as needed. We also sent some lidocaine patches to place where you are having the most pain to your pharmacy. Follow-up with your regular doctor if you are not seeing improvement in the next week or so. Scripts Lidocaine (Lidocaine 5% Patch) 5 % Adh..patch 1 EACH TP Q12H PRN for Neuropathic pain MDD 2 for 14 Days, #28 PATCH 2 patches max for 12 hours, then 12 hours patch-free period. Prov: JESS BLACKWOOD MD 08/11/23 JESS BLACKWOOD MD Aug 11, 2023 10:06
[2023-08-11 10:14] LABS: BILIRUBIN,TOTAL 0.4 MG/DL (0.1-1.0); CALCIUM 9.2 MG/DL (8.5-10.1); CHLORIDE 100 MMOL/L (98-107); MAGNESIUM 1.8 MG/DL (1.6-2.4); POTASSIUM 3.4 MMOL/L (3.6-5.0); SODIUM 138 MMOL/L (135-145)
[2023-08-11 10:15] LABS: PROTHROMBIN TIME PATIENT 13.7 SEC (12.2-14.7)
--- NOTE | 2023-08-11 10:17 | Diagnostic Imaging Report ---
CLINICAL INDICATION: Patient with chest pain. EXAM: Portable chest x-ray upright view. COMPARISON: Chest x-ray dated 11/22/2018. FINDINGS: Lungs/pleura: Lungs are clear. There is no pneumothorax. There is no pleural effusion. Mediastinum: Unremarkable. Pulmonary vasculature: Unremarkable. Heart: Unremarkable. Bones/extrathoracic soft tissue: There is cortical irregularity involving the lateral aspect of the right T9 rib which is of unknown age. Otherwise, there is interval development of chronic appearing fractures involving the posterior left lower ribs and posterior right ribs and lateral right lower ribs. There are degenerative spurs involving the thoracic spine. There is interval development of a compression fracture of the T10 vertebra. There are surgical clips overlying the epigastric region again seen. ACDF is again seen. IMPRESSION: 1: Lungs are clear. 2: There is cortical irregularity involving the lateral aspect of the right T9 rib which is of unknown age. If there is concern for acute fractures, x-rays of the right ribs would better evaluate. 3: Otherwise, there is interval development of multiple chronic appearing bilateral rib fractures. Dictated by: Dictated on workstation # [id number]
[2023-08-11 10:22] LABS: ALANINE AMINOTRANSFERASE 11 U/L (0-55); ALKALINE PHOSPHATASE 106 U/L (40-136); BUN/CREATININE RATIO 21; CARBON DIOXIDE 28 MMOL/L (21-32); CREATININE SERUM 0.77 MG/DL (0.60-1.30); GFR ESTIMATED 84; GLUCOSE 92 MG/DL (70-105)
[2023-08-11 10:23] LABS: ALBUMIN 3.6 GM/DL (3.2-4.5); LIPASE 21 U/L (8-78); TOTAL PROTEIN 6.5 GM/DL (6.4-8.2)
[2023-08-11 10:37] LABS: EOSINOPHILS % (MANUAL) 1 %; LYMPHOCYTES % (MANUAL) 6 %; MONOCYTES % (MANUAL) 2 %; NEUTROPHILS % (MANUAL) 91 %
[2023-08-11] MEDS ORDERED: LIDO700A45 TP (10:45)
[2023-08-11 11:05] VITALS: BP 164/76
== END 2023-08-11 11:17 | disposition home or self-care (01) ==
LOC: EDUNIT# 09:38 → ER FS 09:39
DX: S22.31XA Fracture of one rib, right side, initial encounter for closed fracture (principal); Z87.891 Personal history of nicotine dependence; X58.XXXA Exposure to other specified factors, initial encounter
CPT/HCPCS: 36415; 71045; 80053; 83690; 83735; 84484; 85007; 85027; 85610; 85730; 93005; 93041